=== PATIENT | female | born 1955 | race Caucasian/White ===

== ENCOUNTER 2017-04-10 09:29 | Outpatient (CLI) | payer BC ==
[2017-04-10 17:47] LABS: BASOPHILS % (AUTO) 0.8 %; EOSINOPHILS # (AUTO) 0.3 10^3/uL (0.0-0.7); EOSINOPHILS % (AUTO) 5.1 %; HCT - HEMATOCRIT 45.9 % (37.0-47.0); HGB - HEMOGLOBIN 15.3 g/dL (12.0-16.0); LYMPHOCYTES # (AUTO) 1.6 10^3/uL (1.5-3.5); LYMPHOCYTES % (AUTO) 25.9 %; MEAN CORPUSCULAR HEMOGLOBIN 29.8 pg (27.0-31.0); MEAN CORPUSCULAR HGB CONC 33.4 g/dL (32.0-36.0); MEAN CORPUSCULAR VOLUME 89.1 fL (81.0-99.0); MEAN PLATELET VOLUME 8.6 fL (7.9-10.8); MONOCYTES # (AUTO) 0.5 10^3/uL (0.0-1.0); MONOCYTES % (AUTO) 8.6 %; NEUTROPHILS # (AUTO) 3.7 10^3/uL (1.5-6.6); NEUTROPHILS % (AUTO) 59.6 %; RED BLOOD COUNT 5.15 10^6/uL (4.20-5.40); RED CELL DISTRIBUTION WIDTH 13.8 % (12.0-15.0); UNCORRECTED WHITE BLOOD COUNT 6.2 x10^3/uL; WHITE BLOOD COUNT 6.2 x10^3/uL (4.8-10.8)
[2017-04-10 18:04] LABS: ALBUMIN/GLOBULIN RATIO 1.5 (1.0-2.2); BILIRUBIN,TOTAL 0.8 mg/dL (0.2-1.0); BUN - BLOOD UREA NITROGEN 16 mg/dL (6-20); CALCIUM 9.5 mg/dL (8.5-10.3); CARBON DIOXIDE - CO2 28 mmol/L (21-32); CHLORIDE 104 mmol/L (101-111); CHOL/HDL RATIO 2.8 (<4.4); CHOLESTEROL 205 mg/dL; GFR - MDRD 56 (>89); GLUCOSE 110 mg/dL (70-100); HDL CHOLESTEROL 74 mg/dL; POTASSIUM 4.4 mmol/L (3.5-5.0); SODIUM 140 mmol/L (135-145); TOTAL PROTEIN 7.1 g/dL (6.7-8.2); TRIGLYCERIDES 22 mg/dL
[2017-04-10 18:21] LABS: FERRITIN 55.4 ng/mL (11.0-306.8)
[2017-04-10 18:32] LABS: LDL CHOLESTEROL,DIRECT 114 mg/dL
[2017-04-10 18:33] LABS: THYROID STIMULATING HORMONE 0.59 uIU/mL (0.34-5.60)
== END 2017-04-10 09:30 | disposition home or self-care (01) ==
LOC: LAB.F 09:29
PROVIDERS: ATTEND Nurse Practitioner Family
DX: E03.9 Hypothyroidism, unspecified (principal)
CPT/HCPCS: 36415; 80053; 80061; 82306; 82728; 84436; 84439; 84443; 84481; 85025; 86376; 86800

== ENCOUNTER 2017-04-25 11:07 | Outpatient (CLI) | payer BC ==
--- NOTE | 2017-04-28 14:03 | Mammography Report ---
DIGITAL SCREENING MAMMOGRAM: 04/25/2017 CLINICAL INDICATION: A 62-year-old nulliparous patient for screening. COMPARISON: 06/2015, 04/2012, 04/2010, 10/2008, 08/2007. TECHNIQUE: Routine CC and MLO projections were obtained of the breasts. FINDINGS: The breasts demonstrate heterogeneously dense fibroglandular parenchyma bilaterally. Coar se and punctate, typically benign calcifications are present. No suspicious masses, clustered microc alcifications, or regions of architectural distortion are identified. IMPRESSION: BENIGN FINDINGS. RECOMMENDATION: Routine annual screening unless otherwise clinically indicated. BIRADS CATEGORY 2 - BENIGN FINDINGS. STANDARD QUALIFYING STATEMENTS 1. This examination was reviewed with the aid of Computer-Aided Detection (CAD). 2. A negative or benign imaging report should not delay biopsy if clinically suspicious findings are present. Consider surgical consultation if warranted. More than 5% of cancers are not identified by i maging. 3. Dense breasts may obscure an underlying neoplasm. JOB #: [id number] EXT JOB #:[id number]
== END 2017-04-25 11:08 | disposition home or self-care (01) ==
LOC: DI.S 11:07
PROVIDERS: ATTEND Nurse Practitioner Family
DX: Z12.31 Encounter for screening mammogram for malignant neoplasm of breast (principal)
CPT/HCPCS: 77067

== ENCOUNTER 2017-05-16 09:15 | Outpatient (CLI) | payer BC ==
--- NOTE | 2017-05-16 15:44 | XRAY Report ---
THREE VIEW RIGHT FOOT: 05/16/2017 CLINICAL INDICATION: Pain. FINDINGS: AP, lateral, and oblique views of the right foot demonstrate mild degenerative changes. Th ere is no evidence of acute fracture or dislocation. Plantar calcaneal spurring is noted. IMPRESSION: MILD OSTEOARTHRITIS. NO EVIDENCE OF ACUTE FRACTURE. JOB #: [id number] EXT JOB #:[id number]
== END 2017-05-16 09:16 | disposition home or self-care (01) ==
LOC: DI 09:15
PROVIDERS: ATTEND Podiatrist
DX: M19.071 Primary osteoarthritis, right ankle and foot (principal)

== ENCOUNTER 2017-07-02 13:01 | Emergency (ER) | payer BC ==
[2017-07-02] MEDS ORDERED: HYDROmorphone 1 MG/ML SYRINGE IVP STA ×3 (13:37→20:02)
[2017-07-02] MEDS ORDERED: SODIUM CHLORIDE 0.9% 1,000 ML IV ONE (13:37)
[2017-07-02] MEDS ORDERED: ONDANSETRON 4 MG/2 ML VIAL IVP STA (13:37)
--- NOTE | 2017-07-02 13:43 | ED Physician Documentation ---
History of Present Illness - Stated complaint Stated Complaint: R SIDE PX - Chief complaint Chief Complaint: Abd Pain - History obtained from History obtained from: Patient - Additonal information Additional information: Patient is a 62-year-old female for the most part is very healthy. 2 weeks ago she had a ruptured diverticuli and subsequently has had a colectomy and now has a colostomy. Patient is here with a complaint of right upper quadrant pain she has had a little pain ever since his surgery and slowly getting getting worse over the past 2 weeks. Now the pain is increased today. She felt diaphoretic. The pain when she localizes it is over the right costal margin and when she touches it she winces in pain. Appears to be well localized area in the right costal margin. She has not had any coughing there is not been any fever chills she has not had nausea or vomiting. She has had mild dysuria. She says she sometimes has increased pain when she tries to take a deep breath or when she tries to get out of bed. She denies any history of any cardiac problems and does not have any history of venous thromboembolism. She denies any unilateral leg pain or swelling. Review of systems: For pertinent positive and negatives in the review of systems please see the history of present illness, otherwise all other systems have been reviewed and are negative. Dragon disclaimer: Parts of this medical record were created using voice recognition technology. Because of the inherent limitations of this system, occasional same sounding word substitutions do occur and persist despite proofreading. Please read the document for context. Review of Systems Constitutional: denies: Fever, Chills, Myalgias GI: reports: Abdominal Pain. denies: Nausea, Vomiting : reports: Dysuria. denies: Frequency, Hesitancy PD PAST MEDICAL HISTORY - Past Medical History Cardiovascular: None Respiratory: None Neuro: None Endocrine/Autoimmune: HyPOthyroidism GI: Other FLAVORER: None : None HEENT: None Psych: None Musculoskeletal: None Derm: None - Past Surgical History Past Surgical History: Yes General: Bowel surgery Ortho: ACL reconstruction, Other Derm: Skin cancer surgery - Present Medications Home Medications: Ambulatory Orders Medication Instructions Recorded Confirmed Thyroid,Pork [[place] Thyroid] 90 mg PO DAILY 06/18/17 07/02/17 metFORMIN [Glucophage] 500 mg PO DAILY 06/18/17 07/02/17 HYDROcodone/ACET 10/325 [[place] 10 1 tab PO Q4HR PRN #30 tablet 06/25/17 07/02/17 mg/325 mg] levoFLOXacin [Levaquin] 500 mg PO DAILY #7 tablet 06/25/17 07/02/17 metroNIDAZOLE [Flagyl] 250 mg PO Q6HR #28 tablet 06/25/17 07/02/17 - Allergies Allergies/Adverse Reactions: Allergies Allergy/AdvReac Type Severity Reaction Status Date / Time gluten Allergy Nausea Verified 07/02/17 13:09 milk AdvReac Cramps Verified 07/02/17 13:09 - Social History Does the pt smoke?: No Smoking Status: Former smoker Does the pt drink ETOH?: No Does the pt have substance abuse?: No - Immunizations Immunizations are current?: Yes - POLST Patient has POLST: No PD ED PE NORMAL - Vitals Vital signs reviewed: Yes - General General: Alert and oriented X 3, No acute distress, Well developed/nourished, Other (Well-appearing female does not look toxic or ill. She is noted to be mildly diaphoretic on palpation. She does appear to be uncomfortable.) - HEENT HEENT: Atraumatic, PERRL - Cardiac Cardiac: RRR, No murmur, No gallop, No rub, Other (Focal area of tenderness between the ribs and right costal margin below the right breast) - Respiratory Respiratory: No respiratory distress, Clear bilaterally - Abdomen Abdomen: Normal bowel sounds, Soft, Non tender, Non distended, Other (Fairly benign abdomen possible mild tenderness in right upper quadrant however the majority of the tenderness is over the costal margin, bowel tones normal active. Colostomy site looks normal.) - Back Back: No CVA TTP, No spinal TTP - Derm Derm: Normal color, Warm and dry, No rash, Other - Extremities Extremities: No deformity, No tenderness to palpate, Normal ROM s pain, No edema - Psych Psych: Normal mood, Normal affect Results - Vitals Vitals: Vital Signs - 24 hr 07/02/17 07/02/17 07/02/17 13:05 14:30 15:41 Temperature 36.3 C L Heart Rate 70 68 70 Respiratory 16 16 16 Rate Blood Pressure 130/82 H 124/73 121/77 O2 Saturation 98 94 94 07/02/17 07/02/17 07/02/17 18:41 19:39 21:17 Temperature Heart Rate 76 82 80 Respiratory 20 16 16 Rate Blood Pressure 153/93 H 150/82 H 150/78 H O2 Saturation 97 100 96 Oxygen O2 Source Room air - Labs Labs: Laboratory Tests 07/02/17 07/02/17 07/02/17 13:53 13:53 13:53 WBC 8.8 RBC 4.19 L Hgb 12.4 Hct 36.7 L MCV 87.6 MCH 29.5 MCHC 33.7 RDW 13.6 Plt Count 625 H MPV 6.8 L Neut # 6.1 Lymph # 1.5 [place] # 0.9 Eos # 0.2 Baso # 0.0 Absolute Nucleated RBC 0.00 Nucleated RBCs 0.0 PT 13.5 H INR 1.2 D-Dimer Sodium 136 Potassium 4.0 Chloride 102 Carbon Dioxide 25 Anion Gap 9.0 BUN 10 Creatinine 0.7 Estimated GFR (MDRD) 85 L Glucose 92 Calcium 8.5 Total Bilirubin 0.5 AST 19 ALT 18 Alkaline Phosphatase 64 Troponin I B-Natriuretic Peptide Total Protein 6.5 L Albumin 3.0 L Globulin 3.5 Albumin/Globulin Ratio 0.9 L Lipase 66 H Urine Color Urine Clarity Urine pH Ur Specific Wilson Urine Protein Urine Glucose (UA) Urine Ketones Urine Occult Blood Urine Nitrite Urine Bilirubin Urine Urobilinogen Ur Leukocyte Esterase Ur Microscopic Review Urine Culture Comments 07/02/17 07/02/17 07/02/17 13:53 13:53 13:53 WBC RBC Hgb Hct MCV MCH MCHC RDW Plt Count MPV Neut # Lymph # [place] # Eos # Baso # Absolute Nucleated RBC Nucleated RBCs PT INR D-Dimer > 1050.0 H Sodium Potassium Chloride Carbon Dioxide Anion Gap BUN Creatinine Estimated GFR (MDRD) Glucose Calcium Total Bilirubin AST ALT Alkaline Phosphatase Troponin I < 0.04 B-Natriuretic Peptide 378 H Total Protein Albumin Globulin Albumin/Globulin Ratio Lipase Urine Color Urine Clarity Urine pH Ur Specific Wilson Urine Protein Urine Glucose (UA) Urine Ketones Urine Occult Blood Urine Nitrite Urine Bilirubin Urine Urobilinogen Ur Leukocyte Esterase Ur Microscopic Review Urine Culture Comments 07/02/17 18:30 WBC RBC Hgb Hct MCV MCH MCHC RDW Plt Count MPV Neut # Lymph # [place] # Eos # Baso # Absolute Nucleated RBC Nucleated RBCs PT INR D-Dimer Sodium Potassium Chloride Carbon Dioxide Anion Gap BUN Creatinine Estimated GFR (MDRD) Glucose Calcium Total Bilirubin AST ALT Alkaline Phosphatase Troponin I B-Natriuretic Peptide Total Protein Albumin Globulin Albumin/Globulin Ratio Lipase Urine Color YELLOW Urine Clarity CLEAR Urine pH 7.0 Ur Specific Wilson 1.010 Urine Protein NEGATIVE Urine Glucose (UA) NEGATIVE Urine Ketones NEGATIVE Urine Occult Blood NEGATIVE Urine Nitrite NEGATIVE Urine Bilirubin NEGATIVE Urine Urobilinogen 0.2 (NORMAL) Ur Leukocyte Esterase NEGATIVE Ur Microscopic Review NOT INDICATED Urine Culture Comments NOT INDICATED PD MEDICAL DECISION MAKING - ED course Complexity details: reviewed old records, reviewed results, re-evaluated patient ED course: Patient is a 62-year-old female who is relatively healthy. She did have peritonitis from ruptured diverticuli and status post hemicolectomy and colostomy. She is here with a complaint of exquisite right costal margin pain. She identifies a well localizable spot in the right anterior costal margin that is exquisitely tender to touch. Because the patient was recently hospitalized she also complained of dyspnea workup ensued which included a d- dimer. The d-dimer was not negative so a CT angiogram of the chest was done and extended through the abdomen and pelvis given her proximity of recent surgery and complaints. The CT scan shows very small pleural effusions otherwise no evidence of pulmonary embolism. The abdominal portion shows changes are probably more consistent with a normal postoperative course. Patient's blood work EKG and urine are also checked and really unremarkable. 10 cc of bupivacaine and 40 mg of Kenalog were injected into the patient's costal margin. I was able to identify a point of maximal intensity of pain and carefully injected the anesthetic and steroid into the intercostal muscle. Remarkably the patient was nearly pain-free after the injection suggesting intercostal myalgia and perhaps cutaneous nerve entrapment syndrome. I suspect a small pleural effusions are more customer sales representative of the postoperative. Since the patient has not been getting up and moving around quite a bit. There is no evidence of hypervolemia and I doubt this is customer sales representative of pulmonary edema or volume overload. The patient will be discharged home at this time she should start to feel better once a Kenalog starts to work. Disposition: To home Clinical impression: 1. Precordial pain 2. Point tenderness costal margin much better after Kenalog and bupivacaine injection suggestive of intercostal myalgia or cutaneous nerve entrapment syndrome 3. Minimal bilateral pleural effusions probably related to normal postoperative. Doubt CHF Departure - Departure Disposition: Home, Self Care Clinical Impression: Intercostal myalgia Instructions: ED Strain Chest Wall Follow-Up: your,physician [Other] Comments: You have a very tender area in the musculature between your ribs consistent with a diagnosis of intercostal myalgia. I did be careful exerting yourself in regards to using the upper extremities or lifting herself out of bed. This is a painful but not a serious condition that should go away with time. you might add anti-inflammatories such as Motrin or naproxen to your current medical therapy Discharge Date/Time: 07/02/17 21:43
[2017-07-02] MEDS ORDERED: HYDROmorphone 1 MG/ML SYRINGE ONE ×3 (13:44→20:11)
[2017-07-02] MEDS ORDERED: ONDANSETRON 4 MG/2 ML VIAL ONE (13:44)
[2017-07-02 13:58] LABS: BASOPHILS % (AUTO) 0.5 %; EOSINOPHILS # (AUTO) 0.2 10^3/uL (0.0-0.7); EOSINOPHILS % (AUTO) 1.9 %; HCT - HEMATOCRIT 36.7 % (37.0-47.0); HGB - HEMOGLOBIN 12.4 g/dL (12.0-16.0); LYMPHOCYTES # (AUTO) 1.5 10^3/uL (1.5-3.5); LYMPHOCYTES % (AUTO) 16.9 %; MEAN CORPUSCULAR HEMOGLOBIN 29.5 pg (27.0-31.0); MEAN CORPUSCULAR HGB CONC 33.7 g/dL (32.0-36.0); MEAN CORPUSCULAR VOLUME 87.6 fL (81.0-99.0); MEAN PLATELET VOLUME 6.8 fL (7.9-10.8); MONOCYTES # (AUTO) 0.9 10^3/uL (0.0-1.0); MONOCYTES % (AUTO) 10.6 %; NEUTROPHILS # (AUTO) 6.1 10^3/uL (1.5-6.6); NEUTROPHILS % (AUTO) 70.1 %; RED BLOOD COUNT 4.19 10^6/uL (4.20-5.40); RED CELL DISTRIBUTION WIDTH 13.6 % (12.0-15.0); UNCORRECTED WHITE BLOOD COUNT 8.8 x10^3/uL; WHITE BLOOD COUNT 8.8 x10^3/uL (4.8-10.8)
[2017-07-02 14:07] LABS: INR 1.2 (0.8-1.2); PT - PROTHROMBIN TIME 13.5 secs (9.9-12.6)
--- NOTE | 2017-07-02 14:09 | XRAY Preliminary Report ---
Exam: XR Chest 1 View IMPRESSION: 1. Lung volumes are somewhat low. Heart size within normal limits. 2. Left base opacity may represent pleural effusion and/or airspace disease. 3. Right costophrenic sulcus blunting may represent small effusion. 4. No evidence of pneumothorax. [facility] SITE ID: [id number]
[2017-07-02 14:11] LABS: ALBUMIN/GLOBULIN RATIO 0.9 (1.0-2.2); BILIRUBIN,TOTAL 0.5 mg/dL (0.2-1.0); CALCIUM 8.5 mg/dL (8.5-10.3); CREATININE 0.7 mg/dL (0.4-1.0); TOTAL PROTEIN 6.5 g/dL (6.7-8.2)
--- NOTE | 2017-07-02 14:11 | XRAY Report ---
EXAM: CHEST RADIOGRAPHY EXAM DATE: 07/02/2017 01:59 PM. CLINICAL HISTORY: Right sided chest pain. COMPARISON: 05/29/2008. TECHNIQUE: 1 view. FINDINGS: Lungs/Pleura: Lung volumes are somewhat low. There is opacity within the left lung base. There is rig ht costophrenic sulcus blunting. No evidence of pneumothorax. Mediastinum: Within exam limitations, cardiomediastinal contour is normal. Other: None. IMPRESSION: 1. Lung volumes are somewhat low. Heart size within normal limits. 2. Left base opacity may represent pleural effusion and/or airspace disease. 3. Right costophrenic sulcus blunting may represent small effusion. 4. No evidence of pneumothorax. [facility] Referring Provider Line: [phone] SITE ID: [id number]
--- NOTE | 2017-07-02 17:37 | CT Report ---
EXAM: CT ANGIOGRAM CHEST EXAM DATE: 07/02/2017 04:48 PM. CLINICAL HISTORY: Chest pain, dyspnea. COMPARISON: None. TECHNIQUE: Routine helical imaging was performed through the chest in the pulmonary arterial phase. I V Contrast: 100 cc Isovue-300. Reconstructions: Coronal 3-D MIP reconstructions.Sagittal and coronal. In accordance with CT protocol optimization, one or more of the following dose reduction techniques w ere utilized for this exam: automated exposure control, adjustment of mA and/or KV based on patient s ize, or use of iterative reconstructive technique. FINDINGS: Pulmonary Arteries: Diagnostic quality: Adequate through the proximal to mid segmental arteries. Respiratory motion artif act and atelectasis limited assessment of distal vessels. No evidence for acute or chronic pulmonary emboli. No evidence of right heart strain. Lungs/Pleura: There is a moderate-sized left pleural effusion. Small right pleural effusion. There is right middle lobe collapse. There is bibasilar dependent airspace disease which may represent atelec tasis and/or infiltrates. There is no evidence of pneumothorax. Mediastinum: There is cardiomegaly. No enlarged axillary, supraclavicular, mediastinal, or hilar lymp h nodes. Thoracic Aorta: Unremarkable. Visualize abdomen: Findings are detailed separately. Other: None. IMPRESSION: 1. No evidence of acute pulmonary embolism through the proximal to mid segmental branch level. No [place] dence of large central embolus or right heart strain. 2. There are bilateral pleural effusions. 3. There is right middle lobe collapse. 4. There is bibasilar dependent airspace disease which may represent atelectasis and/or infiltrates. 5. There is cardiomegaly. 6. No evidence of thoracic aortic dissection or aneurysm. 7. Findings within the abdomen and pelvis are detailed separately. [facility] Referring Provider Line: [phone] SITE ID: [id number]
--- NOTE | 2017-07-02 17:45 | CT Report ---
EXAM: CT ABDOMEN AND PELVIS EXAM DATE: 07/02/2017 04:48 PM. CLINICAL HISTORY: Chest pain, abdominal pain COMPARISONS: 06/18/2017. TECHNIQUE: Routine helical CT imaging was performed through the abdomen and pelvis. IV contrast: 100 cc Isovue-300. Enteric contrast: No. Reconstructions: Coronal and sagittal. In accordance with CT protocol optimization, one or more of the following dose reduction techniques w ere utilized for this exam: automated exposure control, adjustment of mA and/or KV based on patient s ize, or use of iterative reconstructive technique. FINDINGS: Lung Bases: Findings are detailed separately. Liver: Normal. No masses. Gallbladder/Bile Ducts: Unremarkable. Spleen: Normal. Pancreas: Normal. Adrenal Glands: Normal. Kidneys: Normal. No masses or hydronephrosis. Peritoneal Cavity/Bowel: There is a small hiatal hernia. No clearly dilated or thick-walled bowel is seen. There is a left lower quadrant ostomy. There is some mild mesenteric edema adjacent to bowel lo ops within the lower left abdomen and pelvis. Trace free fluid within the pelvis. No intraperitoneal free air. The appendix is well visualized and normal. Pelvic Organs: There are rectosigmoid surgical sutures. Removal of fatty density lesion within the ri ght adnexa. The urinary bladder is unremarkable. Vasculature: No aneurysms or other significant abnormality. Bones: No significant abnormality. Other: None. IMPRESSION: 1. Findings within the chest are detailed separately. 2. Status post distal colectomy with left lower quadrant ostomy. No evidence of intra-abdominal fluid collection. 3. There is some mild mesenteric edema adjacent to loops of bowel within the left lower quadrant. Thi s could represent mild enteritis. No dilated or thick-walled bowel is seen. 4. No acute solid abdominal organ abnormalities are seen. 5. There is a small hiatal hernia. 6. Interval removal of right adnexal fat density lesion. No clearly acute pelvic organ abnormalities are seen. [facility] Referring Provider Line: [phone] SITE ID: [id number]
[2017-07-02 18:42] LABS: BILIRUBIN,URINE NEGATIVE (NEGATIVE)
[2017-07-02 18:46] LABS: UA CHARGE (STRIP ONLY) YES; UR CULTURE IF IND NOT INDICATED
[2017-07-02] MEDS ORDERED: KETOROLAC 60 MG/2 ML VIAL IVP STA (20:02)
[2017-07-02] MEDS ORDERED: TRIAMCINOLONE 40 MG/ML VIAL IM STA (20:03)
[2017-07-02] MEDS ORDERED: BUPIVACAINE 0.5% PF 30 ML VIAL SUBQ STA (20:04)
[2017-07-02] MEDS ORDERED: TRIAMCINOLONE 40 MG/ML VIAL ONE (20:11)
[2017-07-02] MEDS ORDERED: KETOROLAC 30 MG/ML VIAL ONE (20:11)
[2017-07-02] MEDS ORDERED: BUPIVACAINE 0.5% PF 30 ML VIAL ONE (20:12)
[2017-07-02 21:18] VITALS: BP 150/78
== END 2017-07-02 21:43 | disposition home or self-care (01) ==
LOC: ED 13:01
DX: M79.1 Myalgia (principal); R07.2 Precordial pain; Z93.3 Colostomy status; E03.9 Hypothyroidism, unspecified; Z87.891 Personal history of nicotine dependence
CPT/HCPCS: 36415; 71010; 71275; 74177; 80053; 81003; 83690; 83880; 84484; 85025; 85379; 85610; 93005; 96372; 96374; 96375; 96376; 99283; 99284; J1170; 81001; 87086

== ENCOUNTER 2017-10-16 10:21 | Day surgery (SDC) | payer BC ==
[2017-10-16] MEDS ORDERED: LACTATED RINGERS 1,000 ML IV ONE (11:03)
[2017-10-16] MEDS ORDERED: ONDANSETRON 4 MG/2 ML VIAL IVP ONE (11:29)
[2017-10-16] MEDS ORDERED: MIDAZOLAM 2 MG/2 ML VIAL IVP ONE (11:29)
[2017-10-16] MEDS ORDERED: fentaNYL 100 MCG/2 ML VIAL IVP ONE (11:29)
[2017-10-16 14:18] VITALS: BP 126/74
== END 2017-10-16 10:22 | disposition home or self-care (01) ==
LOC: SDS 10:21
PROVIDERS: ATTEND Surgery
PROC: 0DBN8ZX Excision of Sigmoid Colon, Via Natural or Artificial Opening Endoscopic, Diagnostic (ICD-10-PCS; 2017-10-16)
PROC: 0DBK8ZX Excision of Ascending Colon, Via Natural or Artificial Opening Endoscopic, Diagnostic (ICD-10-PCS; principal; 2017-10-16 11:15)
DX: Z12.11 Encounter for screening for malignant neoplasm of colon (principal); D12.2 Benign neoplasm of ascending colon; D12.5 Benign neoplasm of sigmoid colon; K57.30 Diverticulosis of large intestine without perforation or abscess without bleeding; K64.8 Other hemorrhoids; Z87.891 Personal history of nicotine dependence; Z93.3 Colostomy status
CPT/HCPCS: 44389; 45385; J7120

== ENCOUNTER 2018-01-21 10:00 | Outpatient (CLI) | payer BC ==
[2018-01-21 17:53] LABS: T4 (THYROXINE) 7.72 ug/dL (6.09-12.23)
[2018-01-21 17:56] LABS: THYROID STIMULATING HORMONE 0.53 uIU/mL (0.34-5.60)
[2018-01-21 17:58] LABS: FREE T4 (FREE THYROXINE) 0.88 ng/dL (0.58-1.64)
== END 2018-01-21 10:01 | disposition home or self-care (01) ==
LOC: LAB.F 10:00
PROVIDERS: ATTEND Nurse Practitioner Family
DX: E03.2 Hypothyroidism due to medicaments and other exogenous substances (principal); E55.9 Vitamin D deficiency, unspecified; M25.50 Pain in unspecified joint
CPT/HCPCS: 36415; 82306; 84436; 84439; 84443; 84481; 85651

== ENCOUNTER 2018-06-30 20:16 | Outpatient (CLI) | payer BC ==
--- NOTE | 2018-07-01 01:47 | Ultrasound Report ---
Reason: SPRAIN OF MEDIAL COLLATERAL LIGAMENT OF LT KNEE Procedure Date: 06/30/2018 Accession Number: [id number] / [id number] Procedure: US - Duplex Ext Veins Left CPT Code: FULL RESULT: EXAM: LEFT LOWER EXTREMITY VENOUS ULTRASOUND EXAM DATE: 06/30/2018 08:25 PM. CLINICAL HISTORY: SPRAIN OF MEDIAL COLLATERAL LIGAMENT OF LT KNEE. COMPARISON: None. TECHNIQUE: Real-time sonographic vascular imaging was performed by the secure software assessor through the lower extremity utilizing both color-flow and Doppler spectral analysis. Multiple pharmaceutical representative static images were saved for review. FINDINGS: Common Femoral Vein (CFV): Normal. CFV-GSV Junction: Normal. Profunda Femoral Vein (PFV): Normal. Femoral Vein (FV) Prox: Normal. Femoral Vein (FV) Mid: Normal. Femoral Vein (FV) Dist: Normal. Popliteal Vein: Normal. Posterior Tibial Veins: Normal. Peroneal Veins: Normal. Contralateral Side CFV: Normal. Other: There is a 2.0 x 0.4 0.8 cm Tanner cyst. IMPRESSION: No evidence for deep venous thrombosis. Tanner's cyst. [facility]
== END 2018-06-30 20:17 | disposition home or self-care (01) ==
LOC: DI 20:16
PROVIDERS: ATTEND Orthopaedic Surgery Sports Medicine
DX: M79.89 Other specified soft tissue disorders (principal); S83.412D Sprain of medial collateral ligament of left knee, subsequent encounter; M71.22 Synovial cyst of popliteal space [Baker], left knee

== ENCOUNTER 2018-12-29 14:40 | Outpatient (CLI) | payer BC | END 2018-12-29 14:41 | disposition home or self-care (01) | LOC: SC 14:40 | PROVIDERS: ATTEND Internal Medicine Pulmonary Disease | DX: G47.10 Hypersomnia, unspecified (principal); R06.81 Apnea, not elsewhere classified; R06.83 Snoring; G47.8 Other sleep disorders; R41.89 Other symptoms and signs involving cognitive functions and awareness | CPT/HCPCS: 99203; 99212 ==

== ENCOUNTER 2019-02-02 19:30 | Outpatient (CLI) | payer BC | END 2019-02-02 23:59 | disposition home or self-care (01) | LOC: SC 19:30 | PROVIDERS: ATTEND Internal Medicine Pulmonary Disease | DX: G47.33 Obstructive sleep apnea (adult) (pediatric) (principal) | CPT/HCPCS: 95806 ==

== ENCOUNTER 2019-04-01 10:06 | Outpatient (CLI) | payer BC ==
--- NOTE | 2019-04-01 14:31 | XRAY Report ---
Reason: PERSONAL HISTORY OF NICOTINE DEPENDENCE Procedure Date: 04/01/2019 Accession Number: [id number] / [id number] Procedure: XR - Chest 2 View X-Ray CPT Code: 99574 FULL RESULT: EXAM: CHEST RADIOGRAPHY EXAM DATE: 04/01/2019 11:31 AM. CLINICAL HISTORY: Personal history of nicotine dependence. COMPARISON: CHEST 2 VIEW PA/LAT 10/25/2017 3:16 PM. TECHNIQUE: 2 views. FINDINGS: Lungs/Pleura: No focal opacities evident. No pleural effusion. No pneumothorax. Normal volumes. Mediastinum: Heart and mediastinal contours are unremarkable. Other: None. IMPRESSION: No airspace disease is detected. [facility]
--- NOTE | 2019-04-01 17:43 | MRI Report ---
Reason: TEAR OF MEDIAL MENISCUA OF RIGHT KNEE Procedure Date: 04/01/2019 Accession Number: [id number] / [id number] Procedure: MRI - Knee RT W/O CPT Code: FULL RESULT: EXAM: RIGHT KNEE MRI WITHOUT CONTRAST. EXAM DATE: 04/01/2019 10:21 AM. CLINICAL HISTORY: Tear of medial meniscus of right knee. COMPARISON: KNEE 4 VIEW RT 02/17/2015 3:12 PM. TECHNIQUE: Multiplanar, multisequence T1-weighted and fluid-sensitive sequences of the knee without contrast. Other: None. FINDINGS: Bones: Moderate degenerative joint disease with osteophytes in all 3 compartments. Previous ACL repair. Bone tunnels and hardware in the expected location with mild susceptibility artifact as expected. Moderate marrow edema in the medial femoral condyle. No fracture margin seen. Likely degenerative. Articular Cartilage: 1 x 2 cm grade III-IV chondromalacia defect in the medial femoral condyle with 0.5 cm cartilage flap fragment. Grade III and IV chondromalacia patella. Medial Meniscus: 1 cm radial tear posterior horn, nondisplaced. Lateral Meniscus: The lateral meniscus is intact. Cruciate Ligaments: ACL graft is somewhat indistinct but appears intact. PCL appears normal. Collateral Ligaments: Mild edema proximal medial collateral ligament. Lateral collateral normal. Tendons: The quadriceps, patellar, semimembranosus, and popliteus tendons are unremarkable. Musculature: No edema or fatty atrophy. Other: Small effusion. 6 cm popliteal fossa cyst. No loose bodies. The medial and lateral retinacula are intact. Mild soft tissue edema. IMPRESSION: 1. Previous ACL repair appears intact. 2. Moderate 3 compartment degenerative joint disease, most severe in the medial and patellofemoral compartments. 3. 1 x 2 cm grade III/IV chondromalacia defect medial femoral condyle with associated marrow edema in the medial femoral condyle. 4. Radial tear posterior horn medial meniscus. 5. Grade 1 sprain medial collateral ligament. [facility]
== END 2019-04-01 10:07 | disposition home or self-care (01) ==
LOC: DI 10:06
PROVIDERS: ATTEND Orthopaedic Surgery
DX: S83.241D Other tear of medial meniscus, current injury, right knee, subsequent encounter (principal); M17.11 Unilateral primary osteoarthritis, right knee; M94.261 Chondromalacia, right knee; S83.411A Sprain of medial collateral ligament of right knee, initial encounter; R05 Cough; Z87.891 Personal history of nicotine dependence
CPT/HCPCS: 71046

== ENCOUNTER 2019-04-22 10:08 | Outpatient (CLI) | payer BC ==
--- NOTE | 2019-04-22 17:33 | MRI Report ---
Reason: PRIMARY OSTEOARTHRITIS OF LEFT KNEE Procedure Date: 04/22/2019 Accession Number: [id number] / [id number] Procedure: MRI - Knee LT W/O CPT Code: FULL RESULT: EXAM: LEFT KNEE MRI WITHOUT CONTRAST EXAM DATE: 04/22/2019 10:46 AM. CLINICAL HISTORY: Left knee osteoarthritis. COMPARISON: None. TECHNIQUE: Multiplanar, multisequence T1-weighted and fluid-sensitive sequences of the knee without contrast. Other: None. FINDINGS: Bones: There is subchondral edema in the medial corner of the medial tibial condyle and in the lateral half of the femoral trochlea. There is tricompartmental osteophyte formation. Articular Cartilage: There is severe erosion of the hyaline cartilage of the medial compartment. There is mild erosion of the hyaline cartilage of the lateral compartment. There is mild to moderate erosion of the patellofemoral cartilage. Medial Meniscus: The body of the medial meniscus is extruded, with fraying of the free margin. Lateral Meniscus: Lateral meniscus is intact. Cruciate Ligaments: The anterior and posterior cruciate ligaments are intact. Collateral Ligaments: The medial collateral and lateral collateral ligamentous structures are intact. Tendons: The quadriceps, patellar, semimembranosus, and popliteus tendons are unremarkable. Musculature: No edema or fatty atrophy. Other: There is a moderate-sized joint effusion with a popliteal cyst. No loose bodies. The medial and lateral retinacula are intact. The subcutaneous tissues and fat pads are unremarkable. IMPRESSION: 1. Tricompartmental osteoarthritis worst in the medial compartment. 2. Moderate-sized joint effusion with a popliteal cyst. 3. Extrusion of the medial meniscus with fraying of the free margin. [facility]
== END 2019-04-22 10:09 | disposition home or self-care (01) ==
LOC: DI 10:08
PROVIDERS: ATTEND Orthopaedic Surgery
DX: M17.12 Unilateral primary osteoarthritis, left knee (principal); M71.22 Synovial cyst of popliteal space [Baker], left knee; M25.462 Effusion, left knee

== ENCOUNTER 2019-04-26 14:28 | Outpatient (CLI) | payer BC | END 2019-04-26 14:29 | disposition home or self-care (01) | LOC: SC 14:28 | PROVIDERS: ATTEND Internal Medicine Pulmonary Disease | DX: G47.33 Obstructive sleep apnea (adult) (pediatric) (principal) | CPT/HCPCS: 99212; 99213 ==

== ENCOUNTER 2019-06-01 15:49 | Outpatient (CLI) | payer BC ==
--- NOTE | 2019-06-03 14:00 | XRAY Report ---
Reason: PAIN EDEMA CALCANEUS-ACHILLES TENDON LT Procedure Date: 06/01/2019 Accession Number: [id number] / [id number] Procedure: XR - Calcaneus LT CPT Code: FULL RESULT: EXAM: LEFT ANKLE RADIOGRAPHY EXAM DATE: 06/01/2019 04:06 PM. CLINICAL HISTORY: Pain and edema centered on the calcaneus and the Achilles tendon. COMPARISON: None. TECHNIQUE: Lateral and axial views. FINDINGS: Bones: No fracture or other acute abnormality. 9 mm posterior plantar calcaneal spur. Joints: No subluxation. Soft Tissues: Linear calcification in the plantar fascia, 15 mm anterior to the tip of the calcaneal spur. Thickening of the distal Achilles tendon above the calcaneus, 15 mm AP dimension, with faint linear calcifications. IMPRESSION: No acute abnormality. 9 mm posterior plantar calcaneal spur. Horizontal linear calcifications in the plantar fascia, probably from prior inflammation or injury. Tendinosis of the distal Achilles tendon. [facility]
== END 2019-06-01 15:50 | disposition home or self-care (01) ==
LOC: DI 15:49
PROVIDERS: ATTEND Podiatrist
DX: M67.874 Other specified disorders of tendon, left ankle and foot (principal); M77.32 Calcaneal spur, left foot

== ENCOUNTER 2019-06-05 10:04 | Outpatient (CLI) | payer BC ==
--- NOTE | 2019-06-06 19:54 | MRI Report ---
Reason: 5 CM FIBROUS SWELLING PAIN ACHILLES TENDON L Procedure Date: 06/05/2019 Accession Number: [id number] / [id number] Procedure: MRI - Lower Leg (Tib-Fib) LT W/O CPT Code: 78281 FULL RESULT: EXAM: LEFT ANKLE/HINDFOOT MRI WITHOUT CONTRAST. EXAM DATE:06/05/2019 11:59 AM. CLINICAL HISTORY: 5 cm fibrous swelling pain Achilles tendon left COMPARISON: None. TECHNIQUE: Multiplanar, multisequence T1-weighted and fluid-sensitive sequences of the ankle/hindfoot without contrast. Other: None. FINDINGS: Evaluation mildly limited by patient motion and artifact despite repeat sequences. Bones: No fracture or bone lesion. Mild to moderate degenerative cysts and bone marrow edema at the tarsometatarsal joints, most prominent at the second. Articular Cartilage: No focal defect at the talar dome. Moderate degenerative changes at the tarsometatarsal joints. Ligaments: Mild thickening anterior and posterior tibiofibular, talofibular, and calcaneofibular ligaments, consistent with old sprains. Subtle regularity at the deep fibers deltoid ligament. Spring ligament mildly attenuated although intact. Anterior Tendons: The tibialis anterior, extensor hallucis longus, and extensor digitorum longus tendons are unremarkable. Medial Tendons: The tibialis posterior, flexor digitorum longus, and flexor hallucis longus tendons are unremarkable. Lateral Tendons: Mild tendinopathy peroneus longus and brevis tendons. Achilles Tendon: Severe tendinopathy, most prominent 2 cm from the insertion where there is a focal deep tear extending obliquely through the tendon substance. Tear extends from the posterior lateral surface, involves majority of the transverse width and extends 2.5 cm craniocaudal. Musculature: No edema or fatty atrophy. Other: Small tibiotalar and subtalar joint effusions. 0.5 x 0.6 x 1.5 cm ganglion at the dorsal and lateral aspect talonavicular joint. Minimal edema in the sinus tarsi. Tarsal tunnel unremarkable. Mild thickening at the central band plantar fascia. Mild to moderate subcutaneous edema over the posterior aspect of the hindfoot and extending over the dorsal and lateral aspect midfoot and metatarsals. IMPRESSION: 1. Severe Achilles tendinopathy with focal deep intrasubstance tear 2 cm from the insertion. This extends to the surface of the tendon at the posterior lateral margin. 2. Mild peroneus longus and brevis tendinopathy. 3. Sequelae of mild sprains medial and lateral ligamentous structures. 4. Small tibiotalar and subtalar joint effusions. 5. Moderate degenerative changes at the tarsometatarsal joints. RADIA
== END 2019-06-05 10:05 | disposition home or self-care (01) ==
LOC: DI 10:04
PROVIDERS: ATTEND Podiatrist
DX: S86.012A Strain of left Achilles tendon, initial encounter (principal); M19.072 Primary osteoarthritis, left ankle and foot; M25.472 Effusion, left ankle; M67.972 Unspecified disorder of synovium and tendon, left ankle and foot

== ENCOUNTER 2019-06-07 12:17 | Outpatient (CLI) | payer BC ==
[2019-06-07 16:59] LABS: BILIRUBIN,URINE NEGATIVE (NEGATIVE); GLUCOSE, URINE (UA) NEGATIVE (NEGATIVE); KETONES,URINE (UA) NEGATIVE (NEGATIVE); LEUKOCYTE ESTERASE, URINE NEGATIVE (NEGATIVE); NITRITE,URINE NEGATIVE (NEGATIVE); OCCULT BLOOD,URINE NEGATIVE (NEGATIVE); PROTEIN,URINE NEGATIVE (NEGATIVE); UROBILINOGEN,URINE 0.2 (NORMAL) E.U./dL (NORMAL)
[2019-06-07 17:02] LABS: CLARITY,URINE CLEAR (CLEAR)
[2019-06-07 17:09] LABS: BACTERIA,URINE Rare /HPF (None Seen); RBC,URINE 0-5 /HPF (0-5); SQUAMOUS EPITHELIAL CELL,UR FEW Squamous (<= Few)
[2019-06-07 17:57] LABS: T4 (THYROXINE) 5.24 ug/dL (6.09-12.23)
[2019-06-07 17:59] LABS: THYROID STIMULATING HORMONE 0.38 uIU/mL (0.34-5.60)
[2019-06-07 18:03] LABS: FREE T4 (FREE THYROXINE) 0.64 ng/dL (0.58-1.64)
== END 2019-06-07 12:18 | disposition home or self-care (01) ==
LOC: LAB.S 12:17
PROVIDERS: ATTEND Nurse Practitioner Family
DX: R30.0 Dysuria (principal); E03.2 Hypothyroidism due to medicaments and other exogenous substances
CPT/HCPCS: 36415; 81001; 84436; 84439; 84443; 84481; 87086

== ENCOUNTER 2019-06-15 14:55 | Outpatient (CLI) | payer BC ==
--- NOTE | 2019-06-16 16:36 | MRI Report ---
Reason: R ACHILLES TENDON PAIN SWELLING, HX OF LEVOFLOXA Procedure Date: 06/15/2019 Accession Number: [id number] / [id number] Procedure: MRI - Lower Leg (Tib-Fib) RT W/O CPT Code: FULL RESULT: EXAM: RIGHT CALF/TIBIA MRI WITHOUT CONTRAST EXAM DATE: 06/15/2019 05:46 PM. CLINICAL HISTORY: Right Achilles tendon pain and swelling. COMPARISON: None. TECHNIQUE: Multiplanar, multisequence T1-weighted and fluid-sensitive sequences of the distal calf/tibia without contrast. Other: None. FINDINGS: Bones: No fractures. Mild periarticular marrow edema seen within the talar dome. Joint Spaces minimal tibiofemoral osteophytes are present. Visualized portions of the ankle and knee joints are unremarkable. The articular cartilage of the tibiotalar joint is moderately thinned. Tendons: The plantaris tendon is unremarkable. The Achilles tendon is mildly thickened approximately 4 cm from the distal insertion. Musculature: Mild muscle edema of the distal gastrocnemius. There is a mild amount of fluid in the medial crural fascia. Other: Mild subcutaneous edema surrounds the distal calf. IMPRESSION: 1. Mild to moderate Achilles tendinosis. RADIA
== END 2019-06-15 14:56 | disposition home or self-care (01) ==
LOC: DI 14:55
PROVIDERS: ATTEND Podiatrist
DX: M67.972 Unspecified disorder of synovium and tendon, left ankle and foot (principal)

== ENCOUNTER 2019-07-13 13:04 | Outpatient (CLI) | payer BC ==
--- NOTE | 2019-07-14 15:31 | XRAY Report ---
Reason: PAIN IN RT BALL OF FOOT Procedure Date: 07/13/2019 Accession Number: [id number] / [id number] Procedure: XR - Foot 3 View RT CPT Code: FULL RESULT: EXAM: RIGHT FOOT RADIOGRAPHY EXAM DATE: 07/13/2019 01:29 PM. CLINICAL HISTORY: PAIN IN RT BALL OF FOOT. COMPARISON: FOOT 3 VIEW RT 05/16/2017 9:18 AM. TECHNIQUE: 3 views. FINDINGS: Bones: Bony overgrowth first metatarsal head. Mild metatarsus adductus. Achilles tendon, plantar heel spur. Joints: Joint space narrowing first metatarsophalangeal joint. Talonavicular osteophyte. Soft Tissues: Normal. No soft tissue swelling. IMPRESSION: DJD. Bunion formation RADIA
== END 2019-07-13 13:05 | disposition home or self-care (01) ==
LOC: DI 13:04
PROVIDERS: ATTEND Podiatrist
DX: M19.071 Primary osteoarthritis, right ankle and foot (principal); M21.611 Bunion of right foot

== ENCOUNTER 2019-08-09 12:52 | Outpatient (CLI) | payer BC ==
[2019-08-09] MEDS ORDERED: BUFFERED LIDOCAINE 10 ML SYRINGE ONE ×2 (13:21)
[2019-08-09] MEDS ORDERED: BUFFERED LIDOCAINE 10 ML SYRINGE IU ONE (14:57)
--- NOTE | 2019-08-09 15:23 | Ultrasound Report ---
Reason: TANNER CYSTS ON BILATERAL KNEES Procedure Date: 08/09/2019 Accession Number: [id number] / [id number] Procedure: US - US Drain/Inj Joint/Bursa W US CPT Code: 62766 FULL RESULT: EXAM: ULTRASOUND-GUIDED TANNER CYST DRAINAGE BILATERALLY. EXAM DATE: 08/09/2019 02:13 PM. CLINICAL HISTORY: Tanner cysts on bilateral knees. COMPARISON: None. TECHNIQUE: Risks, benefits, and alternatives to the procedure were discussed with the patient. All questions answered. Written and verbal consent obtained. Patient was placed in the prone position and the skin overlying the popliteal fossae and cysts marked with sonographic guidance. The skin was sterilely prepped and draped, and 1% buffered lidocaine was used for local anesthesia. An 18-gauge needle was advanced into the popliteal fossa cyst and fluid aspirated on both sides. Upon completion, the needle was removed. FINDINGS: A total of 10 mL of fluid was removed from the right side and a total of 8 mL of fluid was removed from the left side without immediate complication. Patient tolerated procedure well. IMPRESSION: Ultrasound-guided bilateral Bakers cyst aspiration without immediate complications. RADIA
== END 2019-08-09 12:53 | disposition home or self-care (01) ==
LOC: DI 12:52
PROVIDERS: ATTEND Orthopaedic Surgery
DX: M71.22 Synovial cyst of popliteal space [Baker], left knee (principal); M71.21 Synovial cyst of popliteal space [Baker], right knee
CPT/HCPCS: 20611

== ENCOUNTER 2019-08-23 11:12 | Outpatient (CLI) | payer BC ==
[2019-08-23 18:05] VITALS: BP 140/80
--- NOTE | 2019-08-23 18:05 | SLEEP CARE CONSULTATION ---
Information from patient questionnaire entered by Isis Pyle. I have reviewed and concur with the information entered by Isis Pyle. This document represents the service I personally performed and the decisions made by me, Tara Garcia, RN, MSN, [employer]. History of Present Illness Previous diagnosis: Mild, Obstructive Sleep Apnea-Hypopnea Syndrome AHI: 14.0 Reason for follow up: first compliance, other (transfer DME ) Equipment obtained from: [facility] (having problems getting supplies and contact for mask concerns.) Mask style: Full face Mask brand: Respironics Backup mask available: No Last cushion change: no - obtained wrong size Prior sleep studies: Yes (Homestudy) Subjective Patient concerns: reports: air blowing in eyes (takes off mask. ), mask leak noise (wakes her up and so takes off. ), dry mouth, nose, throat (daily), other (pain from knees and back also interrupt sleep. ). denies: aerophagia, mask discomfort (so wears a eye mask), condensation in mask/hose, nasal congestion, epistaxis Observed to snore while using device: No (but sleeps alone) Current pressure setting perceived as: too high On therapy, patient: reports: more rested overall. denies: sleeping better, a wakening more refreshed, being more awake and alert during the day (a little more alert), drowsiness while driving Initial [place] Sleepiness Scale score: 12 Allergies and Home Medications Known drug allergies: No Home medication list reviewed: Yes Allergy and home medication list: Medication Name (generic/name brand) Strength & Dosage Armor Thyroid 90mcg tab one daily Metformin 500mg tab one daily Vitamin C 3000mg tab three daily Vitamin D3 5000IU cap one daily Multiple Vitamins Tab two daily Dim Detox Tab two daily Famotidine 10mg tab 2-3 daily CoQ10 Ibuprofen 200mg tab 8-12 daily as needed Fish Oil One tablespoon daily Melatonin 5mg tab one daily OTC sleep aid 25mg tab daily CBD pill B Super Complex Tab one daily Magnesium Citratr 250mg tab one daily Vitamin B-12 1000mcg tab one daily N-Acetyl, L-Cysteine 600mg tab one daily Physical Exam Blood Pressure: 140/80 Cuff size: long Heart Rate: 56 (irregular with pauses noted about 4-5 times over one minute) O2 Saturation: 98 Height: 5 ft 6.25 in Weight: 203 lb Body Mass Index: 32.5 BMI Classification: Obesity Class 1 Impression and Plan 1. Obstructive Sleep Apnea-Hypopnea Syndrome, mild , with unknown treatment compliance and apnea control. The data from [employer] was not accessable and the patient did not bring the data card ( brought the modem). Thus my staff will reach out to [employer] to get access to the data or the card will have to be brought in to office for download. I will call with the results when obtained and any change in plan of care. On CPAP therapy, the patient reports worse sleep quality due to mask leaks. However, she is slightly more alert and rested during the day and would like to continue therapy. For her mask leak concerns while sleeping on her side. I showed her a CPAP pillow which can be bought on line for about $60 or other style. Since her apnea is primarily on her back, if she is unable to use CPAP, she is advised to sleep on her side with pillow positioning. However, she reports back and knee pain and reports needing to adjust position frequently for comfort. She also reports that the CPAP pressure wakes her being too high and will have to use the ramp in the middle of the night so I will prescribe her CPAP pressure to be reduced to 4-6cmH20. She also reports frustration with trying to get service for questions or supplies from [employer]. She would like to use another company. I explained that if her device is not yet paid for or she is not compliant, she may have to return the CPAP and restart with another company. I will have my clerical coordinator check and inform her of other DME choices. I would also need to make a DWO prescription for transfer once it is known best course of action for patient. Patient would like to pursue. Patient's apnea severity and rationale for treatment to reduce apnea, improve sleep quality and reduce cardiovascular and cerebrovascular events was reviewed. I also reviewed the benefit of consistent device use of CPAP for hypertension, diabetes, depression/anxiety. 2. Arrhythmia, irregular rate, 4-5 pauses / extra beats a minute noted over 1-2 minutes at beginning and end of visit. She denies chest pain, shortness of breath or lightheadedness. She states she was recently informed that she had an irregular heart rate and was evaluated a couple of months ago with an EKG and no treatment indicated. I do not have records of an EKG and her last PCP note on chart indicates a regular heart rate. She declined EKG offer today at hospital for further evaluation and would like to speak to her provider first. Thus I advised patient to check with her provider for further evaluation and agreed with plan. I explained the importance of knowing whether her irregular heart rate is the same as before or if it has changed and now needs treatment. Some arrhythmias can increase risk of heart attack and stroke. I also explained that sometimes a holter monitor is also done for further evaluation over a longer period of time depending on EKG and history which her PCP can discuss with her. * * Change CPAP pressure to 4-6 cmH2O * obtain compliance report. * CPAP pillow * Transfer of care * Notify me if snoring with mask or feeling that the pressure is too much or too little * Attempt to lose weight * Follow up with PCP for further evaluation of irregular heart rhythm * Return for follow up in 1-2 months , or sooner if concerns arise * * Addendum: at 1300, I called and left a message at her PCP Alex Gan's office of patient's irregular heart rate as noted above, asymptomatic and that patient would be contacting for further evaluation. * * * Addendum 08-31-19 The patient brought her compliance card in 08/30/19 - * She was 80% compliance of using CPAP more than 4 hours a day from 06/21/29- 07/20/19 and used CPAP an average of 4.9 hours nightly with most use of 7 hours and 47 minutes. * Her average residual AHI was 14.1 with an average large leak of 18 minutes and average mean pressure of 7.4 and average 90% pressure of 10.1cmH20. CA 4.4, OA 2.9 and hypopnea 3.5. * * The past 30 days showed 50% compliance and an average of 4.8 hours of use with 8 missed days of use. Her residual KEVON was 10.8 with average mean pressure of 7.6cmH20 and average <90% pressure of 10.3cmH20 * It appears the AHI is less with less mask leaks. * * Because of patient waking to high pressure requiring use of ramp and I will reduce autoCPAP pressure with goal of 4-8 cmH20 after reviewing compliance for comfort of patient and better control of apnea once I discuss with patient to recheck her symptoms. * Since she has met compliance, I can make a transfer to another company for supplies only to assist her to get her supplies. * I will again check to see if we have access with modem yet, if not the pressure can be changed in office if patient brings in her device. * * Patient called at 17:15 and informed of compliance results and plan to reduce her CPAP pressure to comfort. She is not yet to goal of getting residual AHI below 5 but first is to get the patient comfortable so can use through the night. Right now she is taking off after a few hours of use due to pressure discomfort. I still do not have access to [employer] to change pressure and was told that [facility] is working on this. Until then, patient advised to bring in device for pressure change this week and reminded of days of operation. I also explained if unable to achieve optimal control of her apnea with in office adjustments, a manual titration study will be ordered. * * I will also make a transfer for supplies only per patient request. She is working with insurance who she can get the supplies from. In addition, she states she is planning on knee surgery in late September. Thus she was advised to take her CPAP with her to use in recovery with rationale discussed. She is again advised to follow up with her PCP on further evaluation of her irregular heart rate with rationale discussed again. I spent 100% of this 40 minute visit face to face with the patient with greater than 50% of this was spent time counseling the patient and coordination of care.
== END 2019-08-23 11:13 | disposition home or self-care (01) ==
LOC: SC 11:12
PROVIDERS: ATTEND Nurse Practitioner Family
DX: G47.33 Obstructive sleep apnea (adult) (pediatric) (principal); I49.9 Cardiac arrhythmia, unspecified; E66.9 Obesity, unspecified; Z68.32 Body mass index [BMI] 32.0-32.9, adult
CPT/HCPCS: 99212; 99215

== ENCOUNTER 2019-10-27 14:55 | Outpatient (CLI) | payer BC | END 2019-10-27 14:56 | disposition critical access hospital (66) | LOC: EMS 14:55 | PROVIDERS: ATTEND Surgery | DX: R55 Syncope and collapse (principal); Z96.651 Presence of right artificial knee joint; R42 Dizziness and giddiness | CPT/HCPCS: A0425; A0429 ==

== ENCOUNTER 2019-10-27 15:24 | Observation (INO) | payer BC ==
--- NOTE | 2019-10-27 15:37 | ED Physician Documentation ---
PD HPI SYNCOPE - Stated complaint Stated Complaint: SYNCOPE - Chief complaint Chief Complaint: Neuro - History obtained from History obtained from: Patient (Last she had her right knee replaced. She was placed on warfarin prophylactically postop but it does not sound like there was any plan to check INR's. First postop appointment is on the of this month. She was a little more active today and did not eat or drink much. She got up and started to feel dizzy for about a minute and then passed out without injury except she feels like she may have hyperflexed her knee. Feels back to normal now without specific complaints. No chest pain or trouble breathing.) Review of Systems Ten Systems: 10 systems reviewed and negative Constitutional: denies: Fever, Chills, Fatigue Nose: denies: Rhinorrhea / runny nose, Congestion Cardiac: denies: Chest pain / pressure, Palpitations Respiratory: denies: Dyspnea, Cough GI: denies: Abdominal Pain, Nausea, Vomiting, Diarrhea PD PAST MEDICAL HISTORY - Past Medical History Cardiovascular: None Respiratory: None Endocrine/Autoimmune: HyPOthyroidism, Other (pre-diabetes.) GI: Other [employer]ER [employer] NET OR TRAP: None : None HEENT: Chronic vision loss Psych: None Musculoskeletal: None Derm: None - Past Surgical History Past Surgical History: Yes General: Bowel surgery Ortho: ACL reconstruction, Other /FISHER POUND NET OR TRAP: Oophrectomy Derm: Skin cancer surgery - Present Medications Home Medications: Ambulatory Orders Medication Instructions Recorded Confirmed Thyroid,Pork [[place] Thyroid] 90 mg PO DAILY 06/18/17 10/22/17 metFORMIN [Glucophage] 500 mg PO DAILY 06/18/17 10/22/17 Multivitamin [Multiple Vitamins] 1 each PO DAILY 10/15/17 10/22/17 oxyCODONE/ACET 5/325 [Percocet 5 1 - 2 tab PO Q4HR PRN #40 tablet 10/26/17 mg/325 mg] - Allergies Allergies/Adverse Reactions: Allergies Allergy/AdvReac Type Severity Reaction Status Date / Time gluten Allergy Nausea Verified 10/27/19 15:32 milk AdvReac Cramps Verified 10/27/19 15:32 - Social History Does the pt smoke?: No Smoking Status: Former smoker Does the pt drink ETOH?: No Does the pt have substance abuse?: No - Immunizations Immunizations are current?: Yes - POLST Patient has POLST: No POLST Status: Full Code PD ED PE NORMAL - Vitals Vital signs reviewed: Yes - General General: Alert and oriented X 3, No acute distress - HEENT HEENT: PERRL, EOMI - Neck Neck: Supple, no meningeal sign, No bony TTP - Cardiac Cardiac: Other (Frequent extrasystoles, she says she has a heart murmur but I do not appreciate it.) - Respiratory Respiratory: No respiratory distress, Clear bilaterally - Abdomen Abdomen: Soft, Non tender - Back Back: No CVA TTP, No spinal TTP - Derm Derm: Normal color, Warm and dry - Extremities Extremities: No edema, No calf tenderness / cord - Neuro Neuro: Alert and oriented X 3, lead presser 2-12 intact, Normal speech Eye Opening: Spontaneous Motor: Obeys Commands Verbal: Oriented GCS Score: 15 - Psych Psych: Normal mood, Normal affect Results - Vitals Vitals: Vital Signs - 24 hr 10/27/19 10/27/19 10/27/19 15:26 16:38 18:27 Temperature 36.7 C Heart Rate 76 74 80 Respiratory 16 15 14 Rate Blood Pressure 143/87 H 141/84 H 146/79 H O2 Saturation 94 95 96 Oxygen O2 Source Room air - EKG (time done) 1537 Rate: Rate (enter#) (76) Rhythm: NSR [place]: Normal Intervals: Normal NC QRS: Normal Ischemia: Q waves (inferior) Computer interpretation: Agree with computer - Labs Labs: Laboratory Tests 10/27/19 10/27/19 10/27/19 16:48 16:48 16:48 WBC 9.7 RBC 4.20 Hgb 12.6 Hct 38.7 MCV 92.1 MCH 30.0 MCHC 32.6 RDW 13.1 Plt Count 322 MPV 9.1 Neut # (Auto) 7.6 H Lymph # (Auto) 1.3 L Leon # (Auto) 0.7 Eos # (Auto) 0.2 Baso # (Auto) 0.0 Absolute Nucleated RBC 0.00 Nucleated RBC % 0.0 PT 14.5 H INR 1.3 H Sodium 139 Potassium 4.0 Chloride 100 L Carbon Dioxide 29 Anion Gap 10.0 BUN 20 Creatinine 0.9 Estimated GFR (MDRD) 63 L Glucose 116 H Calcium 9.1 Total Bilirubin 0.7 AST 20 ALT 19 Alkaline Phosphatase 59 Troponin I High Sens Total Protein 6.9 Albumin 3.6 Globulin 3.3 Albumin/Globulin Ratio 1.1 Lipase 31 Urine Color Urine Clarity Urine pH Ur Specific [place] Urine Protein Urine Glucose (UA) Urine Ketones Urine Occult Blood Urine Nitrite Urine Bilirubin Urine Urobilinogen Ur Leukocyte Esterase Ur Microscopic Review Urine Culture Comments 10/27/19 10/27/19 16:48 17:25 WBC RBC Hgb Hct MCV MCH MCHC RDW Plt Count MPV Neut # (Auto) Lymph # (Auto) Leon # (Auto) Eos # (Auto) Baso # (Auto) Absolute Nucleated RBC Nucleated RBC % PT INR Sodium Potassium Chloride Carbon Dioxide Anion Gap BUN Creatinine Estimated GFR (MDRD) Glucose Calcium Total Bilirubin AST ALT Alkaline Phosphatase Troponin I High Sens 3.4 Total Protein Albumin Globulin Albumin/Globulin Ratio Lipase Urine Color YELLOW Urine Clarity CLEAR Urine pH 7.0 Ur Specific [place] 1.015 Urine Protein NEGATIVE Urine Glucose (UA) NEGATIVE Urine Ketones NEGATIVE Urine Occult Blood NEGATIVE Urine Nitrite NEGATIVE Urine Bilirubin NEGATIVE Urine Urobilinogen 0.2 (NORMAL) Ur Leukocyte Esterase NEGATIVE Ur Microscopic Review NOT INDICATED Urine Culture Comments NOT INDICATED PD MEDICAL DECISION MAKING - ED course ED course: 64-year-old woman with syncope, perioperatively she was on warfarin for prophylaxis, but her INR was only 1.[address] was done showing small PEs. Intermittently on bigeminy on the monitor as well. No evidence of right heart strain on CT. She was given Lovenox here and I spoke with Dr. Fisher for observation at 7:30 PM. Departure - Departure Disposition: ED Place in Observation Clinical Impression: Syncope, Pulmonary embolism, Esophageal thickening Condition: Serious
--- NOTE | 2019-10-27 16:13 | XRAY Report ---
Reason: knee injury Procedure Date: 10/27/2019 Accession Number: [id number] / [id number] Procedure: XR - Knee 2 View RT CPT Code: Final Report FULL RESULT: EXAM: RIGHT KNEE RADIOGRAPHY EXAM DATE: 10/27/2019 03:57 PM. CLINICAL HISTORY: Syncopal episode. Right knee injury. Right knee replacement this past . COMPARISON: KNEE 1-2 VIEWS, RIGHT 10/21/2019 10:43 AM. TECHNIQUE: 2 views. FINDINGS: Bones: Post total knee arthroplasty. The prosthesis is intact. Retained hardware from remote ACL repair. No acute fracture. Joints: Normal alignment. Postoperative effusion and debris in the supra patellar joint space. Soft Tissues: Small curvilinear osseous density adjacent to the medial femoral epicondyle, likely represent a sequela of remote MCL injury. No evident focal soft tissue swelling. IMPRESSION: Stable appearance of right knee prosthesis. No acute fracture. RADIA
[2019-10-27 16:54] LABS: BASOPHILS % (AUTO) 0.3 %; EOSINOPHILS # (AUTO) 0.2 10^3/uL (0.0-0.7); EOSINOPHILS % (AUTO) 1.8 %; HGB - HEMOGLOBIN 12.6 g/dL (12.0-16.0); LYMPHOCYTES # (AUTO) 1.3 10^3/uL (1.5-3.5); LYMPHOCYTES % (AUTO) 12.8 %; MEAN CORPUSCULAR HGB CONC 32.6 g/dL (32.0-36.0); MEAN CORPUSCULAR VOLUME 92.1 fL (81.0-99.0); MEAN PLATELET VOLUME 9.1 fL (7.9-10.8); MONOCYTES # (AUTO) 0.7 10^3/uL (0.0-1.0); MONOCYTES % (AUTO) 6.8 %; NEUTROPHILS # (AUTO) 7.6 10^3/uL (1.5-6.6); NEUTROPHILS % (AUTO) 77.8 %; PLT - PLATELET COUNT 322 10^3/uL (130-450); RED CELL DISTRIBUTION WIDTH 13.1 % (12.0-15.0); WHITE BLOOD COUNT 9.7 x10^3/uL (4.8-10.8)
[2019-10-27 17:01] LABS: INR 1.3 (0.8-1.2); PT - PROTHROMBIN TIME 14.5 secs (9.9-12.6)
[2019-10-27 17:07] LABS: ALBUMIN 3.6 g/dL (3.2-5.5); ALBUMIN/GLOBULIN RATIO 1.1 (1.0-2.2); BILIRUBIN,TOTAL 0.7 mg/dL (0.2-1.0); CALCIUM 9.1 mg/dL (8.5-10.3); CREATININE 0.9 mg/dL (0.4-1.0); TOTAL PROTEIN 6.9 g/dL (6.7-8.2)
[2019-10-27] MEDS ORDERED: IOVERSOL 320 100 ML VIAL IVP ONE ×2 (17:24→18:47)
[2019-10-27 17:33] LABS: BILIRUBIN,URINE NEGATIVE (NEGATIVE); CLARITY,URINE CLEAR (CLEAR); GLUCOSE, URINE (UA) NEGATIVE (NEGATIVE); KETONES,URINE (UA) NEGATIVE (NEGATIVE); LEUKOCYTE ESTERASE, URINE NEGATIVE (NEGATIVE); NITRITE,URINE NEGATIVE (NEGATIVE); OCCULT BLOOD,URINE NEGATIVE (NEGATIVE); PROTEIN,URINE NEGATIVE (NEGATIVE); UROBILINOGEN,URINE 0.2 (NORMAL) E.U./dL (NORMAL)
[2019-10-27] MEDS ORDERED: ENOXAPARIN 100 MG/ML SYRINGE SUBQ STA (17:56)
[2019-10-27] MEDS ORDERED: oxyCODONE 5 MG TABLET PO STA (18:16)
--- NOTE | 2019-10-27 18:43 | CT Report ---
Reason: PE protocol, post op syncope Procedure Date: 10/27/2019 Accession Number: [id number] / [id number] Procedure: CT - ANGIO CHEST W/WO CPT Code: Final Report FULL RESULT: EXAM: CT ANGIOGRAM CHEST EXAM DATE: 10/27/2019 06:01 PM. CLINICAL HISTORY: Postoperative syncope. Rule out pulmonary embolus. COMPARISON: None. TECHNIQUE: Routine helical imaging was performed through the chest in the pulmonary arterial phase. IV Contrast: 65 mL Optiray 320. Reconstructions: Coronal 3-D MIP reconstructions.Sagittal and coronal. In accordance with CT protocol optimization, one or more of the following dose reduction techniques were utilized for this exam: automated exposure control, adjustment of mA and/or KV based on patient size, or use of iterative reconstructive technique. FINDINGS: Pulmonary Arteries: Diagnostic quality: Adequate through the segmental arteries. Small nonocclusive acute segmental emboli in the anterior and apical right upper lobe and posterior and anterior basilar right lower lobe. RV/LV is within normal limits. There is no interventricular septal bowing. There is no reflux of contrast material in the IVC. Lungs/Pleura: Focal scarring with volume loss in the lateral right middle lobe. Mild linear bibasilar atelectasis or scarring. No pleural effusion or pneumothorax. Mediastinum: Heart size is normal. No pericardial effusion. No aortic aneurysm or dissection. No adenopathy. Upper Abdomen: Unremarkable. Bones: Mild degenerative changes within the spine. No acute bony abnormality. Other: Circumferential thickening of the distal esophageal wall with adjacent fat stranding. IMPRESSION: 1. Small nonocclusive acute segmental emboli in the right upper and lower lobes. 2. Focal scarring with volume loss in the lateral right middle lobe. 3. Circumferential thickening of the distal esophageal wall with adjacent fat stranding, possibly representing esophagitis. Recommend GI consultation as malignancy can have a similar appearance. RADIA The critical result notification system was initiated by Dr. Sera Jones at 06:39 PM on 10/27/2019. The above critical result findings were discussed with Lul Hubbard by Dr. Sera Jones at 06:42 PM on 10/27/2019.
[2019-10-27] MEDS ORDERED: SODIUM CHLORIDE FLUSH 0.9% 10 ML SYRINGE IVP PRN (19:30)
[2019-10-27] MEDS ORDERED: ONDANSETRON 4 MG/2 ML VIAL IVP PRN (19:30)
[2019-10-27] MEDS: INSULIN ASPART 300 UNIT/3 ML PEN SUBQ SCH (20:58)
[2019-10-27] MEDS ORDERED: diphenhydrAMINE 25 MG CAPSULE PO PRN (21:35)
--- NOTE | 2019-10-27 21:40 | HISTORY & PHYSICAL EXAMINATION ---
Chief Complaint - Chief Complaint Chief Complaint: Syncope History of Present Illness - Admitted From Admitted From:: Home - History Obtained From Records Reviewed: Yes History obtained from: Patient, Spouse, ER Physician, EMR - History of Present Illness HPI Comment/Other: This is a 64-year-old female with a past medical history significant for hyp othyroidism, prediabetes on metformin, osteoarthritis of the right knee status post total knee arthroplasty who presents today after having a syncopal episode this afternoon. The patient reports she underwent a total right knee arthroplasty this past at [facility]. She was observed overnight and discharged the following day. She was sent home on Coumadin for DVT prophylaxis. She states she has been taking it every day but she has not had an INR check. She reports she been doing well at home until this afternoon when she passed out while sitting on the seat of her walker. She states she initially standing but started to feel lightheaded so she sat down on the seat. She said she continued to feel lightheaded and the next thing she knew, she was leaning backwards on the seat and then she passed out. Her spouse was able to come to her aid immediately and he believes she was passed out for about 1 minute. She did slide off of the seat she was sitting on in the believes she might of potentially hit her head although if so it was very mild. The patient states that immediately after she gained consciousness, she continued to feel lightheaded and nauseous and had 2 episodes of emesis. She was concerned that she might have bent her right knee more than 90 degrees. She reports no chest pain or palpitations prior to the event. Currently is not complaining of chest pain or dyspnea. She states that she did have one syncopal episode a couple of years back when she had a colostomy in place after she underwent emergent surgery for diverticulitis with perforation. She states that at that time, she was emptying her colostomy bag when it leaked and that she had stool all over her and the next thing she knew she fainted. She reports no cardiac history to her knowledge although she states she was told she had a murmur a few months ago. She does have obstructive sleep apnea and is compliant with CPAP therapy. She reports no fevers, chills, dysuria. She reports that her mother had a history of blood clots but this is the patient's first episode. She denies any history of bleeding or bleeding tendencies. In the emergency department, she is found to be afebrile temperature of 36.7. Her heart rate was 76. She was slightly hypertensive with a blood pressure of 143/87. Her respiratory rate is 16. She is saturating 95% on room air. Her labs were significant for an INR of 1.3. Troponin was negative at 4.2. EKG reveals sinus rhythm with flattening of T waves in leads III and aVF. CTA of the chest revealed small nonocclusive acute segmental emboli in the right upper and lower lobes. X-ray of the right knee reveals a stable appearance of the right knee prosthesis. While in the emergency department, her rhythm became ventricular bigeminy. Given these findings, medicine was consulted for admission. I did discuss goals of care with the patient she would like to be a full code. History - Past Medical History Cardiovascular: reports: None Respiratory: reports: None Endocrine/Autoimmune: reports: HyPOthyroidism, Other (Prediabetes) GI: reports: Diverticulitis COAL WEIGHER: reports: None : reports: None HEENT: reports: Chronic vision loss Psych: reports: None Musculoskeletal: reports: Osteoarthritis Derm: reports: None MRSA Hx?: No - Past Surgical History General: reports: Bowel surgery Ortho: reports: Knee replacement, ACL reconstruction /COAL WEIGHER: reports: Oophrectomy Derm: reports: Skin cancer surgery - Family & Social History Family History Comment/Other: She reports her mother had a history of blood clots and the first occurrence was when she was with the patient. She reports her father is also a prediabetic. She believes her grandfather had cardiac problems. Living arrangement: At home Living Situation: With spouse/s.o. Social History Notes: She lives on [address] with her , Scott. 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 She has smoked on and off most of her life but quit 3 years ago. She said she smoked about half a pack a day when she was smoking. At times she quit up to 10 years but then picked up smoking again. She drinks alcohol on a social basis. - Substance History Use: Uses substance without health or social issues: NONE - POLST Patient has POLST: No POLST Status: Full Code Meds/Allgy - Home Medications Home Medications: Ambulatory Orders Medication Instructions Recorded Confirmed Thyroid,Pork [[place] Thyroid] 90 mg PO DAILY 06/18/17 10/22/17 metFORMIN [Glucophage] 500 mg PO DAILY 06/18/17 10/22/17 Multivitamin [Multiple Vitamins] 1 each PO DAILY 10/15/17 10/22/17 oxyCODONE/ACET 5/325 [Percocet 5 1 - 2 tab PO Q4HR PRN #40 tablet 10/26/17 mg/325 mg] - Allergies Allergies/Adverse Reactions: Allergies Allergy/AdvReac Type Severity Reaction Status Date / Time gluten Allergy Nausea Verified 10/27/19 15:32 milk AdvReac Cramps Verified 10/27/19 15:32 Review of Systems - Constitutional Constitutional: denies: Fatigue, Fever, Chills, Weakness, Poor appetite - Cardiovascular Cariovascular: reports: Lightheadedness, Syncope. denies: Palpitations, Chest pain, Edema, Exertional dyspnea, Decr. exercise tolerance - Respiratory Respiratory: denies: Cough, Sputum production, SOB at rest, SOB with exertion - Gastrointestinal Gastrointestinal: reports: Nausea, Vomiting. denies: Abdominal pain - Genitourinary Genitourinary: denies: Dysuria, Frequency, Urgency - Musculoskeletal Musculoskeletal: reports: Limited range of motion, Joint swelling - Integumentary Integumentary: denies: Rash - Neurological Neurological: reports: Dizziness. denies: General weakness, Focal weakness - Hematologic/Lymphatic Hematologic/Lymphatic: denies: Bruising, Blood clots, Bleeding tendencies - All Other Systems All Other Systems: reports: Reviewed and negative Prior Level of Functionality: She is independent with her ADLs. She is currently using a walker to ambulate given her recent total knee arthroplasty. Exam - Vital Signs Reviewed Vital Signs: Yes Vital Signs: Vital Signs x48h Temp Pulse Pulse Resp BP BP Pulse Ox 10/27/19 21:00 36.5 C 74 16 152/90 H 10/27/19 20:00 36.5 C 82 14 135/78 H 95 10/27/19 19:30 83 13 135/86 H 94 10/27/19 18:27 80 14 146/79 H 96 10/27/19 16:38 74 15 141/84 H 95 10/27/19 15:26 36.7 C 76 16 143/87 H 94 - Physical Exam General Appearance: positive: No acute distress, Alert Eyes Bilateral: positive: Normal inspection ENT: positive: ENT inspection nml Neck: positive: Nml inspection Respiratory: positive: No respiratory distress. negative: Wheezes, Rales, Rhonchi Cardiovascular: positive: Regular rate & rhythm, No murmur. negative: Tachycardia, Bradycardia, Systolic murmur, Diastolic murmur Abdomen: positive: Non-tender, No distention, Other (Prior incisional scars noted from expiratory laparotomy and colostomy takedown.). negative: Tenderness, Guarding, Rebound Skin: positive: No rash, Warm, Dry Extremities: positive: Pedal edema (Trace pitting edema in bilateral lower extremities.), Other (Her right lower extremity appears slightly more edematous than left lower extremity above the knee. Below the knee, they appear symmetrical). negative: Full ROM (Does have slight decreased range of motion in the right lower extremity at the knee) Neurologic/Psychiatric: positive: Oriented x3, Other (No focal motor deficits. Right lower extremity motor is limited secondary to pain at the knee.). negative: Disoriented to person, Disoriented to place, Disoriented to time Conclusion/Plan - Problem List (1) Syncope Conclusion/Plan: Syncope is concerning given the diagnosis of pulmonary embolism and the edita tricular bigeminy. Pulmonary embolism may possibly spleen syncope although on imaging, the clot burden is not that extensive. We will continue to monitor her on telemetry and trend her troponins which have been negative so far. We will also obtain echocardiogram in the morning. Will discuss with cardiology given the ventricular bigeminy if any other work-up or referral needs to be done. We can consider starting her on a beta-shyam as her blood pressure will tolerate it. Qualifiers: Encounter type: initial encounter (2) Acute pulmonary embolism without acute cor pulmonale Conclusion/Plan: Has acute provoked segmental right pulmonary embolism. There is no evidence of right heart strain on imaging troponin is negative. BNP slightly elevated but it has been higher in the past. She is on tachycardic or hypoxic. She received Lovenox in the emergency department. We will continue this for the time being. We will likely transition her to an oral NOAC on discharge. Will obtain Dopplers of lower extremity to evaluate for extensive DVT. (3) Ventricular bigeminy Conclusion/Plan: Her EKG here reveals a sinus rhythm but she is now in ventricular bigeminy on telemetry. Review of the EMR reveals that her last EKG in March of this year showed that she was in ventricular bigeminy at that moment. Her potassium is at 4 but we will check a magnesium to make sure it is optimized. We will also check a TSH given her history of hypothyroidism. Will obtain echocardiogram for st ructural evaluation. We will continue to monitor her on telemetry. (4) S/P total knee arthroplasty Conclusion/Plan: Status post right total knee arthroplasty 1 week ago at [facility]. Although she was concerned that she may have hyperflexed her knee, x-rays are negative in the emergency department. We will continue her on her home oxycodone, Tylenol, Colace Qualifiers: Laterality: right Qualified Code(s): Z96.651 - Presence of right artificial knee joint (5) Esophageal thickening Conclusion/Plan: This is evident on the CTA of the chest and she will require outpatient endoscopy. It was discussed the patient reports she does have occasional GERD that began about 1 year ago. We will start her on Protonix and she was asked to follow-up with her outpatient provider to be referred for endoscopy and she is agreeable to this. (6) Prediabetes Conclusion/Plan: She is on metformin at home. We will place on sliding scale and a carb controlled diet while hospitalized. (7) Hypothyroidism Conclusion/Plan: We will check a TSH in the morning and resume her home medication. - Lab Results Lab results reviewed: Yes Fish Bones: 10/28/19 04:25 10/28/19 04:25 - Diagnostic Imaging Results Diagnostic Imaging Results: positive: Final report reviewed - EKG Results EKG Interpreted Independently: Yes EKG Comparison: Changed from prior EKG EKG Findings: Her EKG reveals a sinus rhythm with flattening of the T waves in leads III and aVF. There are also Q waves noted in leads III and aVF. This is changed compared to her EKG back in March 2019 which showed a sinus rhythm and ventricular bigeminy. Core Measures - Anticipated LOS I expect patient to be DC'd or transferred within 96 hours.: Yes - Issues Hospital Issues and Management Plan: This is a 64-year-old female presenting with syncope after right total knee arthroplasty. She is found to have small segmental pulmonary embolism. While in the emergency department, she can be in ventricular bigeminy. She will be admitted for further management of her pulmonary embolism and work-up of the syncope. - DVT/VTE - Prophylaxis VTE/DVT Device ordered at admit?: No Not Ordered - Medical Reason: Not indicated VTE/DVT Prophylaxis med ordered at admit?: Yes
[2019-10-27] MEDS ORDERED: BENZOCAINE/MENTHOL LOZENGE MM PRN (22:17)
[2019-10-27] MEDS: oxyCODONE 5 MG TABLET PO PRN (22:53)
[2019-10-27] MEDS: SODIUM CHLORIDE FLUSH 0.9% 10 ML SYRINGE IVP SCH (23:47)
[2019-10-27] MEDS: ACETAMINOPHEN 325 MG TABLET PO PRN (23:47)
--- NOTE | 2019-10-28 00:04 | Ultrasound Report ---
Reason: PE. Eval for DVT. Procedure Date: 10/27/2019 Accession Number: [id number] / [id number] Procedure: US - Duplex Ext Veins Bilateral CPT Code: Final Report FULL RESULT: EXAM: BILATERAL LOWER EXTREMITY VENOUS ULTRASOUND EXAM DATE: 10/27/2019 11:20 PM. CLINICAL HISTORY: Pulmonary embolism. COMPARISON: None. TECHNIQUE: Real-time sonographic vascular imaging was performed by the supervisor uranium processing through the lower extremities utilizing both color-flow and Doppler spectral analysis. Multiple retail wireless sales representative static images were saved for review. FINDINGS: Right: Common Femoral Vein (CFV): Normal. CFV-GSV Junction: Normal. Profunda Femoral Vein (PFV): Normal. Femoral Vein (FV) Prox: Normal. Femoral Vein (FV) Mid: Normal. Femoral Vein (FV) Dist: Normal. Popliteal Vein: Normal. Posterior Tibial Veins: Limited evaluation. No gross evidence of thrombus. Peroneal Veins: Limited evaluation. No gross evidence of thrombus. Left: Common Femoral Vein (CFV): Normal. CFV-GSV Junction: Normal. Profunda Femoral Vein (PFV): Normal. Femoral Vein (FV) Prox: Normal. Femoral Vein (FV) Mid: Normal. Femoral Vein (FV) Dist: Normal. Popliteal Vein: Normal. Posterior Tibial Veins: Normal. Peroneal Veins: Limited evaluation. No gross evidence of thrombus. Other: A hypoechoic debris-containing fluid collection is seen in the posteromedial right knee measuring 5.2 x 1.1 x 2.6 cm. No internal vascularity is seen. A cyst is seen in the posterior medial left knee measuring 3.1 x 1.1 x 1.2 cm. No internal vascularity is seen. IMPRESSION: 1. No evidence for deep venous thrombosis bilaterally. 2. Hypoechoic debris-containing collection in the posterior right knee may represent debris-containing recurrent Tanner's cyst versus hematoma. 3. Left Tanner's cyst. RADIA
[2019-10-28] MEDS: oxyCODONE 5 MG TABLET PO PRN ×3 (03:59→13:33)
[2019-10-28 05:01] LABS: BASOPHILS # (AUTO) 0.1 10^3/uL (0.0-0.1); BASOPHILS % (AUTO) 0.8 %; EOSINOPHILS # (AUTO) 0.5 10^3/uL (0.0-0.7); EOSINOPHILS % (AUTO) 6.8 %; HGB - HEMOGLOBIN 12.4 g/dL (12.0-16.0); LYMPHOCYTES # (AUTO) 2.8 10^3/uL (1.5-3.5); LYMPHOCYTES % (AUTO) 35.8 %; MEAN CORPUSCULAR HEMOGLOBIN 29.7 pg (27.0-31.0); MEAN CORPUSCULAR HGB CONC 30.8 g/dL (32.0-36.0); MEAN CORPUSCULAR VOLUME 96.2 fL (81.0-99.0); MEAN PLATELET VOLUME 9.5 fL (7.9-10.8); MONOCYTES # (AUTO) 0.7 10^3/uL (0.0-1.0); MONOCYTES % (AUTO) 8.4 %; NEUTROPHILS # (AUTO) 3.7 10^3/uL (1.5-6.6); NEUTROPHILS % (AUTO) 47.7 %; PLT - PLATELET COUNT 314 10^3/uL (130-450); RED BLOOD COUNT 4.18 10^6/uL (4.20-5.40); RED CELL DISTRIBUTION WIDTH 13.2 % (12.0-15.0); WHITE BLOOD COUNT 7.7 x10^3/uL (4.8-10.8)
[2019-10-28 05:16] LABS: CALCIUM 8.4 mg/dL (8.5-10.3); CREATININE 0.7 mg/dL (0.4-1.0); MAGNESIUM 2.1 mg/dL (1.7-2.8); PHOSPHORUS 3.7 mg/dL (2.5-4.6)
[2019-10-28] MEDS: ACETAMINOPHEN 325 MG TABLET PO PRN (06:32)
[2019-10-28] MEDS ORDERED: PANTOPRAZOLE 40 MG TABLET PO SCH (07:00)
[2019-10-28] MEDS ORDERED: THYROID 60 MG TABLET PO SCH (07:00)
[2019-10-28] MEDS ORDERED: MULTIVITAMIN W/MINERALS TABLET PO SCH (08:00)
[2019-10-28] MEDS ORDERED: RIVAROXABAN 15 MG TABLET PO SCH (08:00)
[2019-10-28] MEDS ORDERED: metFORMIN 500 MG TABLET PO SCH (08:00)
[2019-10-28] MEDS: INSULIN ASPART 300 UNIT/3 ML PEN SUBQ SCH ×2 (08:14→11:31)
[2019-10-28] MEDS ORDERED: DOCUSATE SODIUM 100 MG CAPSULE PO SCH (09:00)
[2019-10-28] MEDS ORDERED: ENOXAPARIN 80 MG/0.8 ML SYRINGE SUBQ SCH (09:00)
[2019-10-28] MEDS ORDERED: ENOXAPARIN 100 MG/ML SYRINGE SUBQ SCH (09:00)
[2019-10-28] MEDS: SODIUM CHLORIDE FLUSH 0.9% 10 ML SYRINGE IVP SCH (11:31)
--- NOTE | 2019-10-28 11:33 | PHARMACY PROGRESS NOTE ---
- Best Possible Medication History Admit Date and Time: 10/27/191929 Processed by: Pharmacy Medication History completed: Yes Patient Interview: Completed Secondary Source(s): Pharmacy records, Insurance records As the person ultimately responsible for medication therapy, providers are able to order a medication from an existing home medication list in [facility] via the "Reconcile Routine" prior to Confirmation of that medication by data support analyst. Such practice is discouraged except when the physician, in their clinical judgment, deems that a medical need exists for a medication without regard to previous use.
--- NOTE | 2019-10-28 12:05 | Discharge Plan ---
Discharge Plan Problem Reviewed?: Yes Disposition: Home, Self Care Condition: Stable Prescriptions: Rivaroxaban [Xarelto] 15 mg PO 0800,1800 #14 tablet Diet: Diabetic Activity Restrictions: Activity as Tolerated Assistance Devices: Walker Instruction Topics: Embolism Pulmonary, Syncope, Syncope Causes Health Concerns: You were in Observation Status here after you had fainting. The evaluation in the emergency room found that you have a pulmonary embolism (blood clot) in the lung. You also have skipped beats called PVCs, which you have had before, on a prior EKG. The other testing was stable. You may have fainted from either this lung blood clot, or from dehydration, or a low blood pressure, or low glucose level, or over-sedation from pain medications, or some other unknown reason. You may need further testing (like a 24 hour Holter monitor) done as an outpatient. You may NOT drive a car, because of the fainting spell, until you are cleared to do so by your PCP. You have been started on blood thinner (Xarelto) to treat the blood clot in the lungs. This treatment should continue for 3 months. A new prescription has been provided to you for the FIRST WEEK ONLY of pills, and sent electronically to your pharmacy. You need to see your PCP for refills for more tablets. Stop the Coumadin. You should see your Primary Care Provider in the office in the next 5 to 7 days for follow-up of this fainting spell, REFILL OF XARELTO, determination of whether you have a clotting defect (it could run in the family), any other concerns after your knee surgery that you may have, and to be cleared to resume driving. Restart all your pre-hospital medications except no Coumadin. You should resume your diabetic management including fingerstick glucose checks to make sure your are not too low in glucose level. If you have new or worsening symptoms, call your PCP for advice or come to the ER. Plan of Treatment: As above. Care Goals: Improvement in symptoms and stabilization are the goals. Assessment: The patient understands. No Smoking: If you smoke, Please STOP! Call for help. Follow-up with: Alex Kaufman ARNP [Primary Care Provider] -
[2019-10-28 12:43] VITALS: BP 157/89
--- NOTE | 2019-10-28 20:24 | DISCHARGE SUMMARY ---
Discharge Summary Admit Date: 10/27/19 Discharge Date: 10/28/19 Discharging Provider: Dr Jess Mcnair Primary Care Provider: Alex Kaufman Code Status: Attempt Resuscitation Condition at Discharge: Stable Discharge Disposition: 01 Home, Self Care - DIAGNOSES Admission Diagnoses: (1) Syncope (2) Acute pulmonary embolism without acute cor pulmonale (3) Ventricular bigeminy (4) S/P total knee arthroplasty (5) Esophageal thickening (6) Prediabetes (7) Hypothyroidism Discharge Diagnoses with Status of Each Condition: See below - HPI History of Present Illness: From the admission H&P of Dr Maikel Fisher: This is a 64-year-old female with a past medical history significant for hypothyroidism, prediabetes on metformin, osteoarthritis of the right knee status post total knee arthroplasty who presents today after having a syncopal episode this afternoon. The patient reports she underwent a total right knee arthroplasty this past at [facility]. She was observed overnight and discharged the following day. She was sent home on Coumadin for DVT prophylaxis. She states she has been taking it every day but she has not had an INR check. She reports she been doing well at home until this afternoon when she passed out while sitting on the seat of her walker. She states she initially standing but started to feel lightheaded so she sat down on the seat. She said she continued to feel lightheaded and the next thing she knew, she was leaning backwards on the seat and then she passed out. Her spouse was able to come to her aid immediately and he believes she was passed out for about 1 minute. She did slide off of the seat she was sitting on in the believes she might of potentially hit her head although if so it was very mild. The patient states that immediately after she gained consciousness, she continued to feel l ightheaded and nauseous and had 2 episodes of emesis. She was concerned that she might have bent her right knee more than 90 degrees. She reports no chest pain or palpitations prior to the event. Currently is not complaining of chest pain or dyspnea. She states that she did have one syncopal episode a couple of years back when she had a colostomy in place after she underwent emergent surgery for diverticulitis with perforation. She states that at that time, she was emptying her colostomy bag when it leaked and that she had stool all over her and the next thing she knew she fainted. She reports no cardiac history to her knowledge although she states she was told she had a murmur a few months ago. She does have obstructive sleep apnea and is compliant with CPAP therapy. She reports no fevers, chills, dysuria. She reports that her mother had a history of blood clots but this is the patient's first episode. She denies any history of bleeding or bleeding tendencies. In the emergency department, she is found to be afebrile temperature of 36.7. Her heart rate was 76. She was slightly hypertensive with a blood pressure of 143/87. Her respiratory rate is 16. She is saturating 95% on room air. Her labs were significant for an INR of 1.3. Troponin was negative at 4.2. EKG re veals sinus rhythm with flattening of T waves in leads III and aVF. CTA of the chest revealed small nonocclusive acute segmental emboli in the right upper and lower lobes. X-ray of the right knee reveals a stable appearance of the right knee prosthesis. While in the emergency department, her rhythm became ventricular bigeminy. - HOSPITAL COURSE Hospital Course: (1) Syncope Syncope was concerning given the diagnosis of pulmonary embolism (but clot burden was small) and the ventricular bigeminy. An Echo and troponins were done and were normal. She may have fainted from either this lung blood clot, or from dehydration, or a low blood pressure, or low glucose level, or over-sedation from pain medications, or some other unknown reason. She may need further testing (like a 24 hour Holter monitor) done as an outpatient. She was given orders not to drive because of the syncope, until cleared to do so by her PCP. (2) Acute pulmonary embolism without acute cor pulmonale This was acute provoked segmental right pulmonary embolism with no evidence of right heart strain on imaging and troponins were negative. Dopplers of lower extremities was neg for DVT. She received Lovenox in the emergency department then started on Xarelto 15 mg po bid for a week. The first week's supply was prescribed (I learned later that she paid out of pocket for this and that further orders need prior authorization, which should be done by the PCP). (3) Ventricular bigeminy Her EKG had a sinus rhythm but ventricular bigeminy on telemetry. Review of the EMR reveals that her last EKG in March of this year showed that she was in ventricular bigeminy at that moment. Her potassium and magnesium were normal. (4) S/P total knee arthroplasty Status post right total knee arthroplasty 1 week ago at [facility]. Although she was concerned that she may have hyperflexed her knee, x-rays are negative in the emergency department. We continued her on her home oxycodone and Tylenol. (5) Esophageal thickening This is evident on the CTA of the chest and she will require outpatient endoscopy. It was discussed the patient, who reported she does have occasional GERD that began about 1 year ago. We started her on Protonix and she was asked to follow-up with her outpatient provider to be referred for endoscopy and she is agreeable to this. (6) Prediabetes She is on metformin at home. She was on sliding scale and a carb controlled diet while hospitalized. (7) Hypothyroidism her home medication was continued. - ALLERGIES Allergies/Adverse Reactions: Allergies Allergy/AdvReac Type Severity Reaction Status Date / Time gluten Allergy Nausea Verified 10/27/19 15:32 milk AdvReac Cramps Verified 10/27/19 15:32 - MEDICATIONS Home Medications: Ambulatory Orders Medication Instructions Recorded Confirmed Thyroid,Pork [[place] Thyroid] 90 mg PO QDAC 06/18/17 10/28/19 metFORMIN [Glucophage] 500 mg PO DAILYWM 06/18/17 10/28/19 Multivitamin [Multiple Vitamins] 1 each PO DAILY 10/15/17 10/28/19 Acetaminophen 1,000 mg PO Q8H PRN 10/28/19 10/28/19 Celecoxib 100 mg PO BID 10/28/19 10/28/19 Docusate Sodium [Dss] 250 mg PO BID PRN 10/28/19 10/28/19 Rivaroxaban [Xarelto] 15 mg PO 0800,1800 #14 tablet 10/28/19 oxyCODONE [Roxicodone] 10 mg PO Q4H PRN 10/28/19 10/28/19 - PHYSICAL EXAM AT DISCHARGE General Appearance: positive: No acute distress, Alert Eyes Bilateral: positive: Normal inspection, PERRL ENT: positive: ENT inspection nml, No signs of dehydration Neck: positive: Nml inspection, No JVD Respiratory: positive: No respiratory distress Cardiovascular: positive: Regular rate & rhythm Abdomen: positive: Non-tender, No distention Skin: positive: Color nml Extremities: positive: No pedal edema Neurologic/Psychiatric: positive: Oriented x3, Other (Grossly intact.) - LABS Result Diagrams: 10/28/19 04:25 10/28/19 04:25 - DIAGNOSTIC IMAGING Diagnostic Imaging Results: Final report reviewed - FOLLOW UP Follow Up: PCP this upcoming week, possible referral to specialists. - TIME SPENT Time Spent in Discharge (Minutes): 45
== END 2019-10-28 14:44 | disposition home or self-care (01) ==
LOC: EDUNIT# → ED 15:24 → MS3 19:30
PROVIDERS: ADMIT Internal Medicine; ATTEND Internal Medicine
DX: R55 Syncope and collapse (principal); I26.99 Other pulmonary embolism without acute cor pulmonale; I49.8 Other specified cardiac arrhythmias; Z96.651 Presence of right artificial knee joint; K22.8 Other specified diseases of esophagus; R73.03 Prediabetes; E03.9 Hypothyroidism, unspecified; Z79.84 Long term (current) use of oral hypoglycemic drugs; Z87.891 Personal history of nicotine dependence
CPT/HCPCS: 36415; 71275; 73560; 80048; 80053; 81003; 83690; 83735; 83880; 84100; 84443; 84484; 85025; 85610; 93005; 93306; 93970; 96372; 99285; A9270; G0378; J1650; Q9967; 81001; 87086

== ENCOUNTER 2019-11-18 14:29 | Outpatient (CLI) | payer BC | END 2019-11-18 14:30 | disposition home or self-care (01) | LOC: LAB.S 14:29 | PROVIDERS: ATTEND Nurse Practitioner Family | DX: Z83.2 Family history of diseases of the blood and blood-forming organs and certain disorders involving the immune mechanism (principal) | CPT/HCPCS: 36415; 80053; 81241; 85025; 85384; 85610; 85730 ==

== ENCOUNTER 2019-11-19 10:09 | Outpatient (CLI) | payer BC ==
[2019-11-19 17:38] LABS: PT - PROTHROMBIN TIME 11.9 secs (9.9-12.6)
[2019-11-19 17:54] LABS: PARTIAL THROMBOPLASTIN TIME 49.5 secs (24.9-33.3)
[2019-11-19 18:28] LABS: BASOPHILS # (AUTO) 0.1 10^3/uL (0.0-0.1); BASOPHILS % (AUTO) 0.3 %; EOSINOPHILS # (AUTO) 0.6 10^3/uL (0.0-0.7); EOSINOPHILS % (AUTO) 3.8 %; HGB - HEMOGLOBIN 13.9 g/dL (12.0-16.0); LYMPHOCYTES # (AUTO) 1.1 10^3/uL (1.5-3.5); LYMPHOCYTES % (AUTO) 7.2 %; MEAN CORPUSCULAR HGB CONC 32.1 g/dL (32.0-36.0); MEAN CORPUSCULAR VOLUME 93.5 fL (81.0-99.0); MEAN PLATELET VOLUME 10.1 fL (7.9-10.8); MONOCYTES # (AUTO) 1.4 10^3/uL (0.0-1.0); MONOCYTES % (AUTO) 8.7 %; NEUTROPHILS # (AUTO) 12.5 10^3/uL (1.5-6.6); NEUTROPHILS % (AUTO) 79.4 %; PLT - PLATELET COUNT 318 10^3/uL (130-450); RED BLOOD COUNT 4.63 10^6/uL (4.20-5.40); RED CELL DISTRIBUTION WIDTH 13.8 % (12.0-15.0); WHITE BLOOD COUNT 15.8 x10^3/uL (4.8-10.8)
[2019-11-19 18:46] LABS: ALBUMIN 4.2 g/dL (3.2-5.5); ALBUMIN/GLOBULIN RATIO 1.4 (1.0-2.2); BILIRUBIN,TOTAL 0.7 mg/dL (0.2-1.0); CREATININE 0.9 mg/dL (0.4-1.0); TOTAL PROTEIN 7.2 g/dL (6.7-8.2)
== END 2019-11-19 10:10 | disposition home or self-care (01) ==
LOC: LAB.S 10:09
PROVIDERS: ATTEND Nurse Practitioner Family
DX: Z83.2 Family history of diseases of the blood and blood-forming organs and certain disorders involving the immune mechanism (principal)
CPT/HCPCS: 36415; 80053; 81241; 85025; 85384; 85610; 85730

== ENCOUNTER 2019-11-25 15:14 | Outpatient (CLI) | payer BC ==
[2019-11-25 18:04] LABS: BASOPHILS % (AUTO) 0.4 %; EOSINOPHILS # (AUTO) 0.7 10^3/uL (0.0-0.7); EOSINOPHILS % (AUTO) 8.8 %; HGB - HEMOGLOBIN 13.3 g/dL (12.0-16.0); LYMPHOCYTES # (AUTO) 1.9 10^3/uL (1.5-3.5); LYMPHOCYTES % (AUTO) 24.6 %; MEAN CORPUSCULAR HEMOGLOBIN 30.1 pg (27.0-31.0); MEAN CORPUSCULAR HGB CONC 32.8 g/dL (32.0-36.0); MEAN CORPUSCULAR VOLUME 91.6 fL (81.0-99.0); MEAN PLATELET VOLUME 10.2 fL (7.9-10.8); MONOCYTES # (AUTO) 0.7 10^3/uL (0.0-1.0); MONOCYTES % (AUTO) 9.8 %; NEUTROPHILS # (AUTO) 4.2 10^3/uL (1.5-6.6); PLT - PLATELET COUNT 318 10^3/uL (130-450); RED BLOOD COUNT 4.42 10^6/uL (4.20-5.40); RED CELL DISTRIBUTION WIDTH 13.6 % (12.0-15.0); WHITE BLOOD COUNT 7.5 x10^3/uL (4.8-10.8)
== END 2019-11-25 15:15 | disposition home or self-care (01) ==
LOC: LAB.S 15:14
PROVIDERS: ATTEND Nurse Practitioner Family
DX: G72.49 Other inflammatory and immune myopathies, not elsewhere classified (principal)
CPT/HCPCS: 36415; 85025; 85651; 86141

== ENCOUNTER 2020-03-08 15:34 | Outpatient (CLI) | payer BC ==
--- NOTE | 2020-03-08 13:39 | SLEEP CARE CONSULTATION ---
Information from patient questionnaire entered by Yane Anderson. I have reviewed and concur with the information entered by Yane Anderson. This document represents the service I personally performed and the decisions made by me, Tara Garcia, RN, MSN, MANAGER OF PURCHASING. History of Present Illness Service Date and Time: 03/08/2020 1534 Previous diagnosis: Mild, Obstructive Sleep Apnea-Hypopnea Syndrome AHI: 14 Reason for follow up: other (7 month) Equipment type: CPAP Equipment obtained from: [facility] (getting supplies with great effort but modem not activiated so has to have bring in device for download.) Mask style: Full face Last cushion change: 2 weeks ago CPAP Compliance Data - Data Reviewed with Patient Average duration of nightly device use: 4.45 Compliance rate %: 65.6 (180 days) Current pressure setting (cmH2O): 4-6 Humidity settin Heated hose settin Average residual AHI: 13.5 (with last pressure change the residual AHI was 10.1 at 4-6 cmH20 ) Average large leak: 7 min 14 sec Subjective Patient concerns: reports: dry mouth, nose, throat ( but the new mask is fitting better - uses lozenges), other (unable to use CPAP after wakes to use bathroom as seems awake). denies: aerophagia, mask discomfort, air blowing in eyes, mask leak noise, condensation in mask/hose, nasal congestion, epistaxis Observed to snore while using device: No Current pressure setting perceived as: comfortable On therapy, patient: reports: sleeping better (but has fallen asleep without CPAP / sleeping longer since COVID sheltor in order) Initial [place] Sleepiness Scale score: 12 Review of Systems Review of systems same as previous: No (hospitalized for knee surgery 10/21/19 later ill and postive for COVID anti) Physical Exam Height: 5 ft 6 in Weight: 201 lb (home ) Body Mass Index: 32.4 BMI Classification: Obese Impression and Plan 1. Obstructive Sleep Apnea-Hypopnea Syndrome, mild, with good treatment compliance and reduced residual AHI from recent pressure change. On CPAP therapy , the patient has better sleep quality and is slightly more rested overall especially since new mask and reduced pressure. The higher pressure range would awaken her from mask leaks. A mask refitting will also be done to see if further adjustment or different style needed. I discussed goal of CPAP residual AHI is to be below 5 at a comfortable pressure. Currently it seems higher pressure causes mask leaks and disrupts sleep. Thus I will order a manual titration study to find optimal treatment pressure and if needed a new mask will be fitted to improve mask fit and comfort with sleep. I discussed what sleep study involves and that my office staff will contact her. To reduce oral dryness, she is advised to reduce her heated hose to allow more moisture as her humidity is already at maximum. She is advised to use an oral dryness products. Types of products can be discussed with her dentist or pharmacist. She was advised not to use throat lozenge in her sleep due to choking risk. For patient supply concerns. Patient was notified that another DME can be used. I will have my training and development coordinator inform of DME options. A DWO prescription will then be made. Patient advised to contact this office if further supply problems. Patient's apnea severity and rationale for treatment to reduce apnea, improve sleep quality and reduce hypertension, cardiovascular and cerebrovascular events was reviewed. There was no time to explore further why it is hard for her to return to sleep after using the bathroom. Thus I advised her to persist in using CPAP with all sleep for maximum benefit of treatment. In regard to her recent positive Covid 19 antibody, she is to notify health department so can track her contacts. She has sent an email to her PCP and notified all her contacts during that period. I will contact her if anything else needs to be done. * Continue auto CPAP pressure at 4-6 cmH2O * Schedule manual titration study * Transfer to new DME * mask refitting * try oral dryness product * Use CPAP with all sleep * reduce heated hose * Notify me if snoring with mask or feeling that the pressure is too much or too little * Attempt to lose weight * Call this office if any problems using CPAP * Contact health department re contacts * Return for follow up after sleep study completed , or sooner if concerns arise Visit Type: Telehealth Video (to reduce risk of Covid 19 exposure.) Patient Location: Home Location of Provider: Home Patient agrees and consents to this telehealth visit type: Yes Patient agrees to have their insurance billed: Yes Time Spent with Patient (minutes): 26 Provider Statement: I spent 100% of the Telehealth Video Call with the patient with greater than 50% spent counseling the patient and coordination of care.
== END 2020-03-08 15:35 | disposition home or self-care (01) ==
LOC: SC 15:34
PROVIDERS: ATTEND Nurse Practitioner Family
DX: G47.33 Obstructive sleep apnea (adult) (pediatric) (principal); E66.9 Obesity, unspecified; Z68.32 Body mass index [BMI] 32.0-32.9, adult

== ENCOUNTER 2020-04-24 20:29 | Outpatient (CLI) | payer BC | END 2020-04-24 20:30 | disposition home or self-care (01) | LOC: SC 20:29 | PROVIDERS: ATTEND Internal Medicine Pulmonary Disease | DX: G47.33 Obstructive sleep apnea (adult) (pediatric) (principal) | CPT/HCPCS: 95811 ==

== ENCOUNTER 2020-05-11 13:02 | Outpatient (CLI) | payer BC, MEDICARE ==
--- NOTE | 2020-05-11 13:58 | SLEEP CARE CONSULTATION ---
Information from patient questionnaire entered by Yane Anderson. I have reviewed and concur with the information entered by Yane Anderson. This document represents the service I personally performed and the decisions made by me, Tara Garcia, RN, MSN, [employer] WINDING MACHINE OPERATOR. History of Present Illness Service Date and Time: 05/11/2020 1302 Previous diagnosis: Mild, Obstructive Sleep Apnea-Hypopnea Syndrome AHI: 14.0 (in 2019) Reason for follow up: with manual titration, other (2 month) Equipment type: CPAP Equipment obtained from: [facility] (getting supplies as needed) Mask style: Full face Backup mask available: Yes (old mask ) Last cushion change: 6 months Prior sleep studies: Yes Year and Where: 2019 - [facility] Type of Sleep Study: Home sleep study HPI additional information: Recently diagnosed with hypertension and started medication. Monitors blood pressure at home with usual range 130-119 / 90. Blood sugars have been elevated and monitoring with glucometer. Sleep Study - Results Type of Sleep Study: Polysomnography Polysomnography/Home Sleep Study results: The quality of the study is good. CPAP was initiated at 4 cmH2O and titrated up to CPAP at 10 cmH2O. CPAP at 10 cmH2O appeared to be optimal (AHI of 2.4 per hour on the pressure). There was supine sleep on the pressure. Oxygen satur ation was minimally low. Lower CPAP settings allowed frequent residual respiratory events when the patient slept supine. The patient appeared to have tolerated positive airway pressure therapy very well. The patients sleep efficiency was normal. Except for mild sleep fragmentation, the sleep architecture was also normal. There was no significant periodic leg movement of sleep. Cardiac rhythm was normal sinus rhythm with frequent premature ventricular contractions in bigeminy. No abnormal behavior (parasomnia) observed during the night. CPAP Compliance Data - Data Reviewed with Patient Average duration of nightly device use: 6.4 Compliance rate %: 96.7 Current pressure setting (cmH2O): 4-6 Humidity settin Heated hose settin Average residual AHI: 7.0 Central apnea: 0.9 Obstructive apnea: 1.5 Hypopnea: 4.5 Average large leak: 6 min 4 sec Subjective Patient concerns: reports: air blowing in eyes (when sleeps on her side), mask leak noise, dry mouth, nose, throat. denies: aerophagia, mask discomfort, condensation in mask/hose, nasal congestion, epistaxis (dry mouth if does not use CPAP after bathroom use and sleeps on side. ), other Observed to snore while using device: No Current pressure setting perceived as: comfortable On therapy, patient: reports: sleeping better, awakening more refreshed, being more awake and alert during the day, more rested overall, drowsiness while driving (sometimes feels fatigued and pulls over for coffee and rest ) Initial [place] Sleepiness Scale score: 12 (in 2019) Current [place] Sleepiness Scale score: 10 Allergies and Home Medications Known drug allergies: Yes Home medication list reviewed: Yes (added ? lisinopril for elevated blood pressure/ monitoring BP at home ) Review of Systems Review of systems same as previous: No (Recurrent headache since Covid 19 virus in October, Right low molar removed) Physical Exam Blood Pressure: 112/80 Cuff size: long Heart Rate: 95 O2 Saturation: 69 Height: 5 ft 6 in Weight: 207 lb (lost 10 pounds ) Body Mass Index: 33.4 BMI Classification: Obese Impression and Plan 1. Obstructive Sleep Apnea-Hypopnea Syndrome, mild, with good treatment compliance and mild elevation of residual AHI. On CPAP therapy, the patient has better sleep quality and is more rested overall. Manual titration study showed best control of apnea at [id number] with supine sleep noted best control on [id number] where apnea is more severe. Thus I will change her autoCPAP pressure to [id number]. Mask leaks can be reduced by washing mask daily and changing mask cushions more frequently to improve mask seal and comfort. Additionally, mask leaks predominately from when patient sleeps on their side can be reduced by using a CPAP pillow. A CPAP pillow sample was shown. This and other styes can be purchased online. Patient has lost weight. Currently patients BMI is 33.4 obesity class Obese. Obesity increases the risk of apnea, CPAP pressure requirements and overall health risks especially cardiovascular and diabetes. A diet consultation can be helpful in achieving optimal weight loss goals. Patient encouraged to discuss their weight loss goals with their PCP and consider a r eferral to a workcell operator. The patient's CPAP pressure range should accommodate some weight loss. Symptoms to report for additional pressure adjustment discussed.Patient's apnea severity and rationale for treatment to reduce apnea, improve sleep quality and reduce cardiovascular and cerebrovascular events was reviewed. I also reviewed the benefit of consistent device use of CPAP for hypertension and diabetes. 2. Arrhythmia, noted on sleep study and reported as cardiac rhythm was normal sinus rhythm with frequent premature ventricular contractions in bigeminy. Patient states she has been evaluated for irregular heart rate prior to her knee surgery earlier this year but no treatment indicated at that time. She was advised to follow up with her PCP for further evaluation and agreed with plan. * * Changeauto CPAP pressure to 9-10 cmH2O * Notify me if snoring with mask or feeling that the pressure is too much or too little * Attempt to lose weight * Call this office if any problems using CPAP * Return for follow up in 1-2 months , or sooner if concerns arise Visit Type: In Office Time Spent with Patient (minutes): 35 Provider Statement: I spent 100% of the Face to Face Visit with the patient with greater than 50% spent counseling the patient and coordination of care.
[2020-05-11 13:59] VITALS: BP 112/80
== END 2020-05-11 13:03 | disposition home or self-care (01) ==
LOC: SC 13:02
PROVIDERS: ATTEND Nurse Practitioner Family
DX: G47.33 Obstructive sleep apnea (adult) (pediatric) (principal); I49.9 Cardiac arrhythmia, unspecified; E66.9 Obesity, unspecified; Z68.33 Body mass index [BMI] 33.0-33.9, adult
CPT/HCPCS: 99212; 99214

== ENCOUNTER 2020-07-10 17:09 | Outpatient (CLI) | payer BC, MEDICARE ==
--- NOTE | 2020-07-10 17:43 | SLEEP CARE CONSULTATION ---
Information from patient questionnaire entered by Catherine Tena. I have reviewed and concur with the information entered by Catherine Tena. This document represents the service I personally performed and the decisions made by me, Melisa Delgado ARNP. History of Present Illness Service Date and Time: 07/10/2020 1700 Previous diagnosis: Mild, Obstructive Sleep Apnea-Hypopnea Syndrome AHI: 14.0 Reason for follow up: other (2-month followup pressure change) Equipment type: CPAP Equipment obtained from: [facility] (not supplies, hassle to deal with them) Mask style: Full face Backup mask available: No (need to save mask when she gets a new one) Last cushion change: long time Prior sleep studies: Yes Year and Where: 2018 - [facility] Type of Sleep Study: Home sleep study HPI additional information: SHREYA FERMIN was diagnosed to have mild, AHI 14.0, obstructive sleep apnea-hypopnea syndrome and returned today for CPAP therapy two month follow-up post pressure change. Patient states her machine did not update to the pressure change made back in April. For some reason her machine cannot talk to anything remotely at her house. She still feels that the pressure is too low and she is not sleeping well. Sleep Study - Results Prior sleep studies: Yes Year and Where: 2018 - [facility] CPAP Compliance Data - Data Reviewed with Patient Average duration of nightly device use: 5.75 Compliance rate %: 78.3 Current pressure setting (cmH2O): 4-6 Humidity settin Heated hose settin Average residual AHI: 8.8 Average large leak: 13 min 30 sec Subjective Missed days of use due to: reports: travel Patient concerns: reports: dry mouth, nose, throat (sleep with mouth open and gets dry). denies: aerophagia, mask discomfort, air blowing in eyes, mask leak noise, condensation in mask/hose, nasal congestion, epistaxis, other Observed to snore while using device: No Current pressure setting perceived as: too low On therapy, patient: reports: sleeping better, awakening more refreshed, being more awake and alert during the day, more rested overall. denies: drowsiness while driving Initial [place] Sleepiness Scale score: 12 (in 2019) Current [place] Sleepiness Scale score: 12 Allergies and Home Medications Drug allergies reviewed: Yes (gluten, milk) Home medication list reviewed: Yes (no changes) Review of Systems Review of systems same as previous: Yes (no changes) Physical Exam Heart Rate: 71 O2 Saturation: 94 Height: 5 ft 6 in Weight: 209 lb Body Mass Index: 33.7 BMI Classification: Obese Impression and Plan 1. Obstructive Sleep Apnea-Hypopnea Syndrome, mild, with good treatment com pliance and fair apnea control. On CPAP therapy, the patient has better sleep quality and is more rested overall but patient has had difficulty recently with pressure feeling too low and it did not get updated after last appointment ordered changes to 8-10 cm H2O. For patient supply concerns and possible machine malfunction. I will have her machine checked for malfunction and have her select another DME supplier. I will have my conservation coordinator inform of DME options. Patient advised to contact this office if further supply problems. Oral dryness can be reduced by adjusting humidity setting higher or heated hose lower or by adjusting both settings. Printed instructions given on how to change humidity and heated hose settings with rationale explaining why to change. Oral dryness can also be reduced by reducing mask leaks. Patient's apnea severity and rationale for treatment to reduce apnea, improve sleep quality and reduce cardiovascular and cerebrovascular events was reviewed. I also reviewed the benefit of consistent device use of CPAP for hypertension, arrhythmia, and diabetes. * Transfer DME * Check machine for malfunction, not connecting remotely * Change autoCPAP pressure to 8-10 cm H2O * Notify me if snoring with mask or feeling that the pressure is too much or too little * Attempt to lose weight * Call this office if any problems using CPAP * Return for follow up in 1-2 months, or sooner if concerns arise Visit Type: In Office Time Spent with Patient (minutes): 20 Provider Statement: I spent 100% of the Face to Face Visit with the patient with greater than 50% spent counseling the patient and coordination of care.
== END 2020-07-10 17:10 | disposition home or self-care (01) ==
LOC: SC 17:09
PROVIDERS: ATTEND Nurse Practitioner Family
DX: G47.33 Obstructive sleep apnea (adult) (pediatric) (principal); E66.9 Obesity, unspecified; Z68.33 Body mass index [BMI] 33.0-33.9, adult
CPT/HCPCS: 99213; G0463; 99212

== ENCOUNTER 2020-09-13 12:22 | Outpatient (CLI) | payer MEDICARE, OTHER | END 2020-09-13 12:23 | disposition home or self-care (01) | LOC: COV 12:22 | PROVIDERS: ATTEND Family Medicine | DX: R06.02 Shortness of breath (principal); R53.83 Other fatigue; J02.9 Acute pharyngitis, unspecified; Z20.828 Contact with and (suspected) exposure to other viral communicable diseases ==

== ENCOUNTER 2020-09-19 08:01 | Outpatient (CLI) | payer MEDICARE, OTHER ==
--- NOTE | 2020-09-19 13:28 | XRAY Report ---
PROCEDURE: Chest 2 View X-Ray INDICATIONS: DYSPNEA TECHNIQUE: 2 view(s) of the chest. COMPARISON: CT angiogram chest 2019. 2 view chest x-ray 04/01/2019.. FINDINGS: Surgical changes and devices: None. Lungs and pleura: No pleural effusions or pneumothorax. Lungs are clear. Mediastinum: Mediastinal contours are normal. Heart size is normal. Bones and chest wall: No suspicious bony abnormalities. Soft tissues appear unremarkable. IMPRESSION: No acute cardiopulmonary disease process. Reviewed by: Kassidy Garvin MD, PhD on 09/19/2020 1:26 PM PST Approved by: Kassidy Garvin MD, PhD on 09/19/2020 1:26 PM PST Station ID: [id number]
== END 2020-09-19 08:02 | disposition home or self-care (01) ==
LOC: DI 08:01
PROVIDERS: ATTEND Nurse Practitioner Family
DX: R06.02 Shortness of breath (principal); R42 Dizziness and giddiness; I34.0 Nonrheumatic mitral (valve) insufficiency
CPT/HCPCS: 93306

== ENCOUNTER 2020-09-19 08:02 | Outpatient (CLI) | payer MEDICARE, OTHER | END 2020-09-19 08:03 | disposition home or self-care (01) | LOC: DI 08:02 | PROVIDERS: ATTEND Internal Medicine Cardiovascular Disease | DX: R06.02 Shortness of breath (principal); R42 Dizziness and giddiness; I34.0 Nonrheumatic mitral (valve) insufficiency | CPT/HCPCS: 93306 ==

== ENCOUNTER 2021-02-19 16:42 | Outpatient (CLI) | payer MEDICARE, OTHER | END 2021-02-19 16:43 | disposition home or self-care (01) | LOC: COV 16:42 | PROVIDERS: ATTEND Surgery | DX: Z01.812 Encounter for preprocedural laboratory examination (principal); K21.9 Gastro-esophageal reflux disease without esophagitis; R93.89 Abnormal findings on diagnostic imaging of other specified body structures; E11.9 Type 2 diabetes mellitus without complications; G47.30 Sleep apnea, unspecified; I27.20 Pulmonary hypertension, unspecified; Z20.822 Contact with and (suspected) exposure to COVID-19 ==

== ENCOUNTER 2021-02-22 09:30 | Day surgery (SDC) | payer MEDICARE, OTHER ==
[2021-02-22] MEDS ORDERED: LACTATED RINGERS 1,000 ML IV ONE ×2 (10:08→11:19)
--- NOTE | 2021-02-22 10:41 | ANESTHESIA ---
Pre-Anesthesia VS, & Labs - Diagnosis GERD, Abnormal CT - Procedure EGD Vital Signs: Temp Pulse Resp BP Pulse Ox 36 C L 66 16 132/82 H 96 02/22/21 09:50 02/22/21 09:50 02/22/21 09:50 02/22/21 09:50 02/22/21 09:50 Height: 5 ft 7 in Weight (kg): 96.4 kg Body Mass Index: 33.3 BMI Classification: Obese - NPO >8 hours - Is Patient ?: No - Lab Results Current Lab Results: Laboratory Tests 02/22/21 09:54: POC Whole Bld Glucose 108 H Home Medications and Allergies Home Medications: Ambulatory Orders Levothyroxine [Synthroid] 88 mcg PO QDAC 02/21/21 Losartan [Cozaar] 50 mg PO DAILY 02/21/21 Omeprazole Magnesium 20 mg PO 02/21/21 Potassium Chloride [Micro-K] 10 meq PO 02/21/21 metFORMIN [Glucophage] 500 mg PO DAILYWM 06/18/17 Multivitamin [Multiple Vitamins] 1 each PO DAILY 10/15/17 Levothyroxine [Synthroid] 88 mcg PO QDAC 02/21/21 Losartan [Cozaar] 50 mg PO DAILY 02/21/21 Omeprazole Magnesium 20 mg PO 02/21/21 Potassium Chloride [Micro-K] 10 meq PO 02/21/21 Allergies/Adverse Reactions: Allergies Allergy/AdvReac Type Severity Reaction Status Date / Time gluten Allergy Nausea Verified 10/27/19 15:32 milk AdvReac Cramps Verified 10/27/19 15:32 Anes History & Medical History - Anesthetic History Anesthesia Complications: reports: Post-Operative Nausea/Vomiting - Medical History Cardiovascular: reports: Pulmonary embolism (2019 after covid infection), Other (Pulmonary hypertension. RVSP 61mmHg) Pulmonary: reports: Sleep apnea, CPAP use Gastrointestinal: reports: GERD, Diverticulitis Urinary: reports: None Neuro: reports: None Musculoskeletal: reports: Osteoarthritis Endocrine/Autoimmune: reports: HyPOthyroidism, Other Blood Disorders: reports: None Skin: reports: None Smoking Status: Former smoker Psychosocial: reports: No issues indicated History of Cancer?: No - Surgical History General: reports: Bowel surgery Gynecologic: reports: Oophrectomy Orthopedic: reports: Knee replacement, ACL reconstruction Dermatologic: reports: Skin cancer surgery Results - Echo Results Echo Results: Report reviewed Exam General: Alert, Oriented x3, Cooperative, No acute distress Dental: WNL Mouth Openin Fingerbreadth Neck Mobility: Normal Mallampati classification: II Thyromental Distance: 4-6 cm Respiratory: Lungs clear, Normal breath sounds, No respiratory distress, No accessory muscle use Cardiovascular: Regular rate, Normal S1, Normal S2, No murmurs Mental/Cognitive Status: Alert/Oriented X3, Normal for patient Plan Anesthesia Type: MAC Consent for Procedure(s) Verified and Reviewed: Yes Code Status: Attempt Resuscitation ASA classification: 3-Severe systemic disease Is this case an emergency?: No
[2021-02-22] MEDS ORDERED: METOCLOPRAMIDE 10 MG/2 ML VIAL IVP PRN (10:42)
[2021-02-22] MEDS ORDERED: ONDANSETRON 4 MG/2 ML VIAL IVP PRN (10:42)
[2021-02-22] MEDS ORDERED: ePHEDrine 50 MG/ML VIAL IVP PRN (10:42)
[2021-02-22] MEDS ORDERED: ATROPINE ABBOJECT 1 MG/10 ML SYRINGE IVP PRN (10:42)
[2021-02-22] MEDS ORDERED: fentaNYL 100 MCG/2 ML VIAL IVP PRN (10:42)
[2021-02-22] MEDS ORDERED: HYDROmorphone 0.5 MG/0.5 ML SYRINGE IVP PRN (10:42)
[2021-02-22] MEDS ORDERED: MORPHINE 2 MG/ML CARPUJECT IVP PRN (10:42)
[2021-02-22] MEDS ORDERED: NALOXONE 0.4 MG/ML VIAL IVP PRN (10:42)
[2021-02-22] MEDS ORDERED: PROPOFOL 200 MG/20 ML VIAL IVP ONE (10:45)
[2021-02-22] MEDS ORDERED: LIDOCAINE-MPF 2% 5 ML VIAL ONE (10:45)
[2021-02-22] MEDS ORDERED: LACTATED RINGERS 1,000 ML IV SCH (11:00)
[2021-02-22 12:07] VITALS: BP 132/86
--- NOTE | 2021-02-22 13:36 | ANESTHESIA POST OP EVALUATION ---
Anesthesia Post Eval - Post Anesthesia Eval Vitals: Last Vital Signs Temp 36.4 C L 02/22/21 12:07 Pulse 70 02/22/21 12:07 Resp 12 02/22/21 12:07 BP 132/86 H 02/22/21 12:07 Pulse Ox 99 02/22/21 12:07 CV Function Including HR & BP: Stable Pain Control: Satisfactory Nausea & Vomiting: Negative Mental Status: Baseline Respiratory Status: Airway Patent Hydration Status: Satisfactory Anesthesia Complications: None
== END 2021-02-22 09:31 | disposition home or self-care (01) ==
LOC: SDS 09:30
PROVIDERS: ATTEND Surgery
PROC: 0DB78ZX Excision of Stomach, Pylorus, Via Natural or Artificial Opening Endoscopic, Diagnostic (ICD-10-PCS; 2021-02-22)
PROC: 0DB58ZX Excision of Esophagus, Via Natural or Artificial Opening Endoscopic, Diagnostic (ICD-10-PCS; 2021-02-22)
PROC: 0DB48ZX Excision of Esophagogastric Junction, Via Natural or Artificial Opening Endoscopic, Diagnostic (ICD-10-PCS; 2021-02-22)
PROC: 0DB98ZX Excision of Duodenum, Via Natural or Artificial Opening Endoscopic, Diagnostic (ICD-10-PCS; principal; 2021-02-22 10:30)
DX: K21.9 Gastro-esophageal reflux disease without esophagitis (principal); K22.8 Other specified diseases of esophagus; K29.50 Unspecified chronic gastritis without bleeding; Z86.16 Personal history of COVID-19; G47.30 Sleep apnea, unspecified; I27.20 Pulmonary hypertension, unspecified; E66.9 Obesity, unspecified; Z68.33 Body mass index [BMI] 33.0-33.9, adult; K44.9 Diaphragmatic hernia without obstruction or gangrene
CPT/HCPCS: 43239; J7120

== ENCOUNTER 2021-04-20 14:49 | Outpatient (CLI) | payer MEDICARE, OTHER | END 2021-04-20 14:50 | disposition home or self-care (01) | LOC: COV 14:49 | PROVIDERS: ATTEND Internal Medicine | DX: Z01.812 Encounter for preprocedural laboratory examination (principal); I27.0 Primary pulmonary hypertension; Z20.822 Contact with and (suspected) exposure to COVID-19 ==

== ENCOUNTER 2021-07-15 13:33 | Outpatient (CLI) | payer MEDICARE, OTHER | END 2021-07-15 13:34 | disposition home or self-care (01) | LOC: RT 13:33 | PROVIDERS: ATTEND Nurse Practitioner Family | DX: R06.00 Dyspnea, unspecified (principal); B94.8 Sequelae of other specified infectious and parasitic diseases | CPT/HCPCS: 94010 ==

== ENCOUNTER 2021-09-04 15:32 | Outpatient (CLI) | payer MEDICARE, OTHER ==
[2021-09-04 19:56] LABS: BASOPHILS % (AUTO) 0.6 %; EOSINOPHILS # (AUTO) 0.4 10^3/uL (0.0-0.7); EOSINOPHILS % (AUTO) 5.6 %; HCT - HEMATOCRIT 46.9 % (37.0-47.0); HGB - HEMOGLOBIN 15.2 g/dL (12.0-16.0); LYMPHOCYTES # (AUTO) 1.8 10^3/uL (1.5-3.5); LYMPHOCYTES % (AUTO) 25.1 %; MEAN CORPUSCULAR HEMOGLOBIN 29.4 pg (27.0-31.0); MEAN CORPUSCULAR HGB CONC 32.4 g/dL (32.0-36.0); MEAN CORPUSCULAR VOLUME 90.7 fL (81.0-99.0); MEAN PLATELET VOLUME 10.7 fL (7.9-10.8); MONOCYTES # (AUTO) 0.6 10^3/uL (0.0-1.0); MONOCYTES % (AUTO) 8.9 %; NEUTROPHILS # (AUTO) 4.2 10^3/uL (1.5-6.6); NEUTROPHILS % (AUTO) 59.5 %; PLT - PLATELET COUNT 326 10^3/uL (130-450); RED BLOOD COUNT 5.17 10^6/uL (4.20-5.40); RED CELL DISTRIBUTION WIDTH 13.5 % (12.0-15.0)
[2021-09-04 20:19] LABS: ALBUMIN 4.6 g/dL (3.2-5.5); ALBUMIN/GLOBULIN RATIO 1.7 (1.0-2.2); BILIRUBIN,TOTAL 0.9 mg/dL (0.2-1.0); CALCIUM 9.9 mg/dL (8.5-10.3); CREATININE 0.9 mg/dL (0.4-1.0); POTASSIUM 4.1 mmol/L (3.5-5.0); TOTAL PROTEIN 7.3 g/dL (6.7-8.2)
== END 2021-09-04 15:33 | disposition home or self-care (01) ==
LOC: LAB.S 15:32
PROVIDERS: ATTEND Nurse Practitioner Family
DX: M20.11 Hallux valgus (acquired), right foot (principal); M21.611 Bunion of right foot; M79.89 Other specified soft tissue disorders
CPT/HCPCS: 36415; 80053; 85025

== ENCOUNTER 2022-01-20 18:13 | Emergency (ER) | payer MEDICARE, OTHER ==
--- NOTE | 2022-01-20 18:41 | ED Physician Documentation ---
PD HPI SYNCOPE - Stated complaint Stated Complaint: MIGRAINE - Chief complaint Chief Complaint: Neuro - History obtained from History obtained from: Patient - Additional information Additional information: 66-year-old woman with history of migraines. Had COVID a couple of years ago and had a PE with 3 months of anticoagulation after a knee replacement. No longer anticoagulated. She has borderline type 2 diabetes. She is been having headaches ever since she had COVID and has had a significant tight type headache in the frontal areas for the last 2 weeks associated with profound light sensitivity. Today she was at a friend's house having lunch and passed out for an unknown length of time. Not associated with chest pain or trouble breathing. No recent pedal edema or calf pain. Review of Systems Ten Systems: 10 systems reviewed and negative Constitutional: reports: Fatigue Cardiac: denies: Chest pain / pressure, Palpitations Respiratory: denies: Dyspnea, Cough PD PAST MEDICAL HISTORY - Past Medical History Cardiovascular: Pulmonary embolism (2019 after covid infection), Other (Pulmonary hypertension. RVSP 61mmHg) Respiratory: None Neuro: None Endocrine/Autoimmune: HyPOthyroidism, Other GI: GERD, Diverticulitis SAVINGS TELLER: None : None HEENT: Chronic vision loss Psych: None Musculoskeletal: Osteoarthritis Derm: None - Past Surgical History Past Surgical History: Yes General: Bowel surgery Ortho: Knee replacement, ACL reconstruction /SAVINGS TELLER: Oophrectomy Derm: Skin cancer surgery - Present Medications Home Medications: Ambulatory Orders Medication Instructions Recorded Confirmed metFORMIN [Glucophage] 500 mg PO DAILYWM 06/18/17 02/22/21 Multivitamin [Multiple Vitamins] 1 each PO DAILY 10/15/17 10/28/19 Levothyroxine [Synthroid] 88 mcg PO QDAC 02/21/21 02/21/21 Losartan [Cozaar] 50 mg PO DAILY 02/21/21 02/21/21 Omeprazole Magnesium 20 mg PO 02/21/21 Potassium Chloride [Micro-K] 10 meq PO 02/21/21 - Allergies Allergies/Adverse Reactions: Allergies Allergy/AdvReac Type Severity Reaction Status Date / Time gluten Allergy Nausea Verified 01/20/22 18:17 milk AdvReac Cramps Verified 01/20/22 18:17 - Social History Does the pt smoke?: No Smoking Status: Former smoker Does the pt drink ETOH?: No Does the pt have substance abuse?: No - Immunizations Immunizations are current?: Yes - POLST Patient has POLST: No POLST Status: Full Code PD ED PE NORMAL - Vitals Vital signs reviewed: Yes - General General: Alert and oriented X 3, Other (She is very light sensitive and somewhat slow to answer questions) - HEENT HEENT: PERRL, EOMI - Neck Neck: Supple, no meningeal sign, No bony TTP - Cardiac Cardiac: RRR, No murmur - Respiratory Respiratory: No respiratory distress, Clear bilaterally - Abdomen Abdomen: Normal bowel sounds, Soft, Non tender - Back Back: No CVA TTP, No spinal TTP - Derm Derm: Normal color, Warm and dry - Extremities Extremities: No edema, No calf tenderness / cord - Neuro Neuro: Alert and oriented X 3, No motor deficit, No sensory deficit, Normal speech Results - Vitals Vitals: Vital Signs - 24 hr 01/20/22 01/20/22 18:18 18:23 Temperature 36.6 C 36.6 C Heart Rate 69 69 Respiratory 16 16 Rate Blood Pressure 117/64 117/64 O2 Saturation 95 95 Oxygen O2 Source Room air - EKG (time done) 1954 Rate: Rate (enter#) (77) Rhythm: NSR (w single PAC) [place]: LAD Intervals: Normal DE QRS: Normal Ischemia: Normal ST segments - Labs Labs: Laboratory Tests 01/20/22 01/20/22 01/20/22 18:57 18:57 18:57 WBC 6.1 RBC 4.21 Hgb 12.7 Hct 37.9 MCV 90.0 MCH 30.2 MCHC 33.5 RDW 13.1 Plt Count 298 MPV 8.9 Neut # (Auto) 3.5 Lymph # (Auto) 1.4 L [place] # (Auto) 0.6 Eos # (Auto) 0.6 Baso # (Auto) 0.1 Absolute Nucleated RBC 0.00 Nucleated RBC % 0.0 PT 11.7 INR 1.1 Sodium 130 L Potassium 3.4 L Chloride 96 L Carbon Dioxide 23 Anion Gap 11.0 BUN 14 Creatinine 0.8 Estimated GFR (MDRD) 72 L Glucose 91 Calcium 8.6 Ethyl Alcohol 11.2 PD MEDICAL DECISION MAKING - ED course ED course: 66-year-old woman with status migrainosus and then syncope. She has a history of PE. Syncope work-up was negative, no evidence of active heart disease, anemia, or PE. CTA of the chest was negative. Given that this is her worst headache in a long time a CT head was done without pertinent positive findings. After the administration of IV Reglan and Benadryl her headache was gone. The patient Was counseled as to the diagnosis and need for follow-up. I counseled the patient with regard to signs and symptoms that would necessitate an urgent reevaluation in the emergency department. They understand they are welcome to return at any time if worse or if not improving as expected. This document was made in part using voice recognition software. While efforts are made to proofread this documents, sound alike and grammatical errors may occur. Departure - Departure Disposition: 01 Home, Self Care Clinical Impression: Status migrainosus, History of pulmonary embolism Syncope Qualifiers: Syncope type: unspecified Qualified Code(s): R55 - Syncope and collapse Condition: Good Record reviewed to determine appropriate education?: Yes Instructions: ED Fainting Unkn Cause, ED Headache Migraine Comments: CT scan of the head and chest were negative today, no evidence of brain problem nor pulmonary embolism either acute nor chronic. Return for new or worsening symptoms. Follow-up with your doctor, next available appointment.
[2022-01-20] MEDS: diphenhydrAMINE INJ 50 MG/ML VIAL IVP STA (18:46)
[2022-01-20] MEDS: METOCLOPRAMIDE 10 MG/2 ML VIAL IVP STA (18:49)
[2022-01-20] MEDS: SODIUM CHLORIDE 0.9% 1,000 ML IV STA (18:52)
[2022-01-20] MEDS ORDERED: IOVERSOL 320 100 ML VIAL IVP ONE (18:53)
[2022-01-20 19:04] LABS: BASOPHILS # (AUTO) 0.1 10^3/uL (0.0-0.1); BASOPHILS % (AUTO) 0.8 %; EOSINOPHILS # (AUTO) 0.6 10^3/uL (0.0-0.7); EOSINOPHILS % (AUTO) 10.2 %; HCT - HEMATOCRIT 37.9 % (37.0-47.0); HGB - HEMOGLOBIN 12.7 g/dL (12.0-16.0); LYMPHOCYTES # (AUTO) 1.4 10^3/uL (1.5-3.5); LYMPHOCYTES % (AUTO) 22.5 %; MEAN CORPUSCULAR HEMOGLOBIN 30.2 pg (27.0-31.0); MEAN CORPUSCULAR HGB CONC 33.5 g/dL (32.0-36.0); MEAN PLATELET VOLUME 8.9 fL (7.9-10.8); MONOCYTES # (AUTO) 0.6 10^3/uL (0.0-1.0); MONOCYTES % (AUTO) 9.2 %; NEUTROPHILS # (AUTO) 3.5 10^3/uL (1.5-6.6); NEUTROPHILS % (AUTO) 57.1 %; PLT - PLATELET COUNT 298 10^3/uL (130-450); RED BLOOD COUNT 4.21 10^6/uL (4.20-5.40); RED CELL DISTRIBUTION WIDTH 13.1 % (12.0-15.0); WHITE BLOOD COUNT 6.1 x10^3/uL (4.8-10.8)
[2022-01-20 19:14] LABS: CALCIUM 8.6 mg/dL (8.5-10.3); CREATININE 0.8 mg/dL (0.4-1.0); ETOH - ETHANOL 11.2 mg/dL; INR 1.1 (0.8-1.2); POTASSIUM 3.4 mmol/L (3.5-5.0); PT - PROTHROMBIN TIME 11.7 secs (9.9-12.6)
[2022-01-20] MEDS: IOVERSOL 320 100 ML VIAL IVP ONE (20:07)
--- NOTE | 2022-01-20 20:15 | CT Report ---
PROCEDURE: HEAD WO INDICATIONS: headache TECHNIQUE: Noncontrast 4.5 mm thick angled axial sections acquired from the foramen magnum to the vertex. For r adiation dose reduction, the following was used: automated exposure control, adjustment of mA and/or kV according to patient size. COMPARISON: None. FINDINGS: Image quality: Excellent. The ventricular system and cortical sulci demonstrate atrophy, consistent for patient's stated age. There are areas of hypodensity in the periventricular and subcortical white matter. There is no acut e intra or extra-axial fluid collection. No acute hemorrhage, mass lesion or midline shift. Brainst em is unremarkable. Globes are symmetrical. Sinuses demonstrate minimal scattered mucosal thickening. No fluid levels. Os seous structures are intact. IMPRESSION: 1. No acute intracranial process. 2. Minimal to mild atrophy and chronic microvascular ischemic changes. Reviewed by: Filomena Laboy MD on 01/20/2022 8:14 PM PDT Approved by: Filomena Laboy MD on 01/20/2022 8:14 PM PDT Station ID: [id number]
--- NOTE | 2022-01-20 20:18 | CT Report ---
PROCEDURE: ANGIO CHEST W/WO INDICATIONS: syncope, Hx of PE< pe protocol CONTRAST: IV CONTRAST: Optiray 320 ml: 100 PO CONTRAST: *NO PO CONTRAST TECHNIQUE: After the administration of intravenous contrast, 2 mm axial images were acquired from the pulmonary apices to the posterior costophrenic angles during the arterial phase. In addition, 1 mm lung kernel and 5 mm soft tissue kernel reconstructions were performed. 3-dimensional coronal oblique maximum int ensity projection (MIP) reformats, 8 mm axial MIP, and 5 mm coronal and sagittal MPR reformats were t hen performed through the thorax. For radiation dose reduction, the following was used: automated exp osure control, adjustment of mA and/or kV according to patient size. COMPARISON: Chest x-ray 09/19/2020, CT chest 10/27/2019 FINDINGS: Image quality: Excellent. Pulmonary arteries: Pulmonary arteries are normal in size, and demonstrate no intraluminal filling d efects to suggest central pulmonary embolism. Lungs and pleura: Lungs are clear. No pleural effusions or pneumothorax. Central and peripheral ai rways are patent. Mediastinum: Heart size is normal, without pericardial effusion. No mediastinal or hilar adenopathy . Thoracic aorta is normal in caliber and enhancement. Esophagus is normal in caliber, with large h iatal hernia. Bones and chest wall: No suspicious bony lesions. Ribs and thoracic spine appear intact throughout. No axillary or supraclavicular adenopathy. The thyroid is normal in size and there are no incident al findings. Abdomen: There is unchanged nodularity of the left adrenal gland. Visualized upper abdominal solid o rgans appear normal in the early arterial phase of enhancement. IMPRESSION: No pulmonary embolism. Lungs are clear. CLINICAL RECOMMENDATION STATEMENTS: In patients <35 years with an ITN detected on CT, MRI, or extrathyroidal ultrasound, the Committee re commends further evaluation with dedicated thyroid ultrasound if the nodule is "e1 cm and has no susp icious imaging features, and if the patient has normal life expectancy. In patients "e35 years with an ITN detected on CT, MRI, or extrathyroidal ultrasound, the Committee r ecommends further evaluation with dedicated thyroid ultrasound if the nodule is "e1.5 cm and has no s uspicious imaging features, and if the patient has normal life expectancy. (ACR, 2014) Reviewed by: Filomena Laboy MD on 01/20/2022 8:17 PM PDT Approved by: Filomena Laboy MD on 01/20/2022 8:17 PM PDT Station ID: [id number]
[2022-01-20 20:34] VITALS: BP 145/80
== END 2022-01-20 20:43 | disposition home or self-care (01) ==
LOC: EDUNIT# → ED 18:13
DX: G43.801 Other migraine, not intractable, with status migrainosus (principal); R55 Syncope and collapse; Z87.891 Personal history of nicotine dependence; Z86.711 Personal history of pulmonary embolism
CPT/HCPCS: 36415; 70450; 71275; 80048; 85025; 85610; 93005; 96374; 96375; 99284; G0480; J1200; J2765; Q9967; 80320

== ENCOUNTER 2022-02-01 18:48 | Outpatient (CLI) | payer MEDICARE, OTHER ==
--- NOTE | 2022-02-02 02:55 | CT Report ---
PROCEDURE: CERVICAL SPINE WO INDICATIONS: SYNCOPE AND COLLAPSE TECHNIQUE: Noncontrast 3 mm thick sections acquired from the skull base to the T4 level. Sagittal and coronal r eformats were then constructed. For radiation dose reduction, the following was used: automated exp osure control, adjustment of mA and/or kV according to patient size. COMPARISON: None. FINDINGS: Image quality: Excellent. Bones: No fractures or subluxation. There is straightening of the cervical lordosis with minimal re versal centered at C5. There is minimal anterolisthesis of approximately 1 to 2 mm at C3-C4 and C4-C5 . Minimal retrolisthesis demonstrated at C5-C6 and C6-C7. There is multilevel degenerative disc disea se throughout the cervical spine including moderate to severe degeneration at C5-C6 and C6-C7. Multil evel facet arthropathy also demonstrated throughout the cervical spine including moderate severe dege neration on the right at C4-C5. Visualized superior ribs are intact. Soft tissues: Prevertebral soft tissues are normal in thickness. No paravertebral hematomas. No ap ical pneumothoraces. IMPRESSION: 1. No fracture or subluxation. 2. Multilevel degenerative changes of the cervical spine as described. Reviewed by: Marshal Mijares MD on 02/02/2022 2:54 AM PDT Approved by: Marshal Mijares MD on 02/02/2022 2:54 AM PDT Station ID: [email or web address]
--- NOTE | 2022-02-02 02:59 | Ultrasound Report ---
PROCEDURE: Carotid Doppler Complete INDICATIONS: SYNCOPE AND COLLAPSE TECHNIQUE: Color and pulse Doppler interrogation was performed of both carotid systems, with image documentation and velocity measurements. COMPARISON: None. FINDINGS: Right side: Brachial blood pressure: 143/67 mm Hg. Common carotid artery peak systolic velocity: 92 cm/sec. Internal carotid artery peak systolic velocity: 59 cm/sec. Internal carotid artery end diastolic velocity: 27 cm/sec. External carotid artery peak systolic velocity: 68 cm/sec. ICA/CCA peak systolic ratio: 0.6 . Chinchilla scale imaging description: There is mild intimal thickening. Percent internal carotid artery stenosis: Less than 50% . Vertebral artery: Flow direction is antegrade. Left side: Brachial blood pressure: 156/82 mm Hg. Common carotid artery peak systolic velocity: 80 cm/sec. Internal carotid artery peak systolic velocity: 89 cm/sec. Internal carotid artery end diastolic velocity: 32 cm/sec. External carotid artery peak systolic velocity: 81 cm/sec. ICA/CCA peak systolic ratio: 1.1 . Chinchilla scale imaging description: There is mild intimal thickening and focal calcified plaque in the p roximal carotid bulb. Percent internal carotid artery stenosis: Less than 50% . Vertebral artery: Flow direction is antegrade. IMPRESSION: 1. Bilateral mild narrowing of less than 50% in the carotid bulbs. The estimate of stenosis included in the report of the imaging study was calculated using the NASCET method Reviewed by: Marshal Mijares MD on 02/02/2022 2:58 AM PDT Approved by: Marshal Mijares MD on 02/02/2022 2:58 AM PDT Station ID: [id number]
== END 2022-02-01 18:49 | disposition home or self-care (01) ==
LOC: DI 18:48
PROVIDERS: ATTEND Nurse Practitioner Family
DX: I65.23 Occlusion and stenosis of bilateral carotid arteries (principal); M47.812 Spondylosis without myelopathy or radiculopathy, cervical region; M50.31 Other cervical disc degeneration, high cervical region; M43.12 Spondylolisthesis, cervical region
CPT/HCPCS: 93880

== ENCOUNTER 2022-02-05 10:57 | Outpatient (CLI) | payer MEDICARE, OTHER ==
[2022-02-05 12:59] VITALS: BP 125/76
--- NOTE | 2022-02-05 12:59 | SLEEP CARE CONSULTATION ---
Information from patient questionnaire entered by Marion Josue MA. I have reviewed and concur with the information entered by Marion Josue MA. This document represents the service I personally performed and the decisions made by , Melisa Delgado ARNP. History of Present Illness Service Date and Time: 02/05/2022 1057 Previous diagnosis: Mild, Obstructive Sleep Apnea-Hypopnea Syndrome AHI: 14.0 Reason for follow up: annual (LAST SEEN 06/2020,) Equipment type: CPAP Equipment obtained from: [facility] (harrassing her with phone calls) Mask style: Full face Backup mask available: Yes (other mask) Last cushion change: 1 month Prior sleep studies: Yes Year and Where: 2019 - [facility] HPI additional information: SHREYA FERMIN was diagnosed to have mild, AHI 14.0, obstructive sleep apnea-hypopnea syndrome and returned today for CPAP therapy annual follow-up. Sleep Study - Results Prior sleep studies: Yes [facility] Compliance Data - Data Reviewed with Patient Average duration of nightly device use: 7 hours 1 minutes Compliance rate %: 74.2 (120 days) Current pressure setting (cmH2O): 4-6 (90% avg 6.0) Humidity settin Heated hose settin Average residual AHI: 12.1 Central apnea: 1.1 Obstructive apnea: 4.4 Hypopnea: 6.6 Average large leak: 6 mins 27 secs Subjective Missed days of use due to: reports: illness (has long Covid), travel Patient concerns: reports: air blowing in eyes (has dry eyes, saw eye doc who confirmed chronic dry eyes, using drops), dry mouth, nose, throat, other (HEADACHE). denies: aerophagia, mask discomfort, mask leak noise, condensation in mask/hose, nasal congestion, epistaxis Observed to snore while using device: No Current pressure setting perceived as: comfortable On therapy, patient: reports: sleeping better, awakening more refreshed, being more awake and alert during the day, more rested overall. denies: drowsiness while driving Initial Bath Sleepiness Scale score: 12 (in 2019) Current Bath Sleepiness Scale score: 6 Allergies and Home Medications Home medication list reviewed: Yes (Losartan, Tramadol for sleep, Pantoprazole) Allergy and home medication list: Allergies gluten Allergy (Verified 01/20/22 18:17) Nausea milk Adverse Reaction (Verified 01/20/22 18:17) Cramps Pt states that "certain dairy products do not cause any problems like some yogurts." Please verify with pt which dairy/milk items cause problems. Review of Systems Review of systems same as previous: Yes (KNEE SURGERY, SEP 2019, [facility], CONTACT COVID-19 FROM HOSPITAL. ) Physical Exam Vital signs obtained and entered by: Tyesha JOSUE CMA AABRANDEN Blood Pressure: 125/76 Cuff size: wrist Heart Rate: 76 O2 Saturation: 99 (PAPER) Height: 5 ft 7 in Weight: 205 lb Body Mass Index: 32.1 BMI Classification: Obese Impression and Plan 1. Obstructive Sleep Apnea-Hypopnea Syndrome, mild, with good treatment compliance and fair apnea control. On CPAP therapy, the patient has better sleep quality and is more rested overall. The patients pressure will be changed to autoCPAP 5-8 cmH20 for elevation of residual AHI. Patient advised to contact me if pressure change is uncomfortable so that it can be adjusted. Goals for apnea control discussed. Patient has a Dreamstation that she received in 2019. I informed the patient that [employer] has a recall on several devices like the patients machine. Patient was encouraged to register their device online with [employer] for the recall to see if their device is affected. If their device is affected they should start a claim. Patient denies any black particles seen in machine or hoses, any unusual odors coming from device. Patient has experienced some upper airway irritation, headache, dry eye irritation and sore throat since about the time she started using CPAP and after she had Covid infection. Patient was advised to stop using her device. I cannot verify if her symptoms are due to long covid symptoms or from the CPAP but would advise caution. Patient was already looking at trying to get a portable CPAP device to use when she sleeps away from home. I advised her that her insurance may not pay for this and she voiced that she already understood this possibility. She would like to definitely get one now. She has been trying to get one through [facility], her DME, but they have not been able to help her with this. She is not happy with them because of multiple phone calls to get her to order supplies, even after she asked them to stop. They have since stopped calling but she is very dissatisfied with them and want to change to another supplier. I will have my home care coordinator inform of DME options. A [facility] prescription will then be made. Patient advised to contact this office if further supply problems. I advised patient to sleep with her head elevated at least 30 degrees with a wedge pillow to reduce apneas until able to use her portable CPAP. Patient voiced understanding and agreement with plan. Patient's apnea severity and rationale for treatment to reduce apnea, improve sleep q uality and reduce cardiovascular and cerebrovascular events was reviewed. I also reviewed the benefit of consistent device use of CPAP for hypertension, arrhythmia and diabetes. * Change auto CPAP pressure to 5-8 cmH2O * Prescription for a portable CPAP * Transfer DME * Update supplies as needed * Notify me if snoring with mask or feeling that the pressure is too much or too little * Attempt to lose weight * Call this office if any problems using CPAP * Return for follow up in 1 year, or sooner if concerns arise Counseling Topics: Sleeping position, Spare mask Visit Type: In Office Time Spent with Patient (minutes): 39 Provider Statement: I spent 100% of the Face to Face Visit with the patient with greater than 50% spent counseling the patient and coordination of care.
== END 2022-02-05 10:58 | disposition home or self-care (01) ==
LOC: SC 10:57
PROVIDERS: ATTEND Nurse Practitioner Family
DX: G47.33 Obstructive sleep apnea (adult) (pediatric) (principal); E66.9 Obesity, unspecified; Z68.32 Body mass index [BMI] 32.0-32.9, adult
CPT/HCPCS: 99214; G0463; 99212

== ENCOUNTER 2023-01-12 15:57 | Emergency (ER) | payer MEDICARE, OTHER ==
--- NOTE | 2023-01-12 19:33 | ED Physician Documentation ---
History of Present Illness - Stated complaint Stated Complaint: FALL,BACK PX - Chief complaint Chief Complaint: Back Pain - Additonal information Additional information: 67-year-old female presents to the emergency department for evaluation of acute left-sided back pain. States she was setting up a garden chair on Friday when she sat in it it gave way. She fell backwards onto her left side. She has a very firm rigid couch which she hit. Since then she has been having pain with any movement and even deep breathing. She has been using 600 mg of Motrin without relief of symptoms. She has taken some leftover hydrocodone which also been ineffective. Pain does not radiate. No saddle anesthesia. No fevers. She is concerned she could have a rib fracture. Patient drove herself to the hospital Review of Systems Constitutional: denies: Fever, Chills GI: reports: Reviewed and negative Musculoskeletal: reports: Back pain PD PAST MEDICAL HISTORY - Past Medical History Cardiovascular: Pulmonary embolism (2019 after covid infection), Other (Pulmonary hypertension. 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: None : None HEENT: Chronic vision loss Psych: None Musculoskeletal: Osteoarthritis Derm: None - Past Surgical History Past Surgical History: Yes General: Bowel surgery Ortho: Knee replacement, ACL reconstruction /HEAVY LINE TECHNICIAN: Oophrectomy Derm: Skin cancer surgery - Present Medications Home Medications: Ambulatory Orders Medication Instructions Recorded Confirmed metFORMIN [Glucophage] 500 mg PO DAILYWM 06/18/17 02/22/21 Multivitamin [Multiple Vitamins] 1 each PO DAILY 10/15/17 10/28/19 Levothyroxine [Synthroid] 88 mcg PO QDAC 02/21/21 02/21/21 Losartan [Cozaar] 50 mg PO DAILY 02/21/21 02/21/21 Omeprazole Magnesium 20 mg PO 02/21/21 Potassium Chloride [Micro-K] 10 meq PO 02/21/21 Fexofenadine HCl 180 mg PO DAILY 03/08/22 03/08/22 Fluticasone [Flonase] 1 sprays ANGELO DAILY 03/08/22 03/08/22 Pantoprazole [Protonix] 40 mg PO QDAC 03/08/22 03/08/22 Propylene Glycol/Peg 400/Pf 1 drops EACHEYE TID 03/08/22 03/08/22 [Systane 0.3-0.4% Eye Drops] Cyclobenzaprine [Flexeril] 10 mg PO TID PRN #20 tablet 01/12/23 oxyCODONE [Roxicodone] 5 mg PO TID PRN #20 tablet 01/12/23 - Allergies Allergies/Adverse Reactions: Allergies Allergy/AdvReac Type Severity Reaction Status Date / Time gluten Allergy Nausea Verified 01/12/23 16:05 milk AdvReac Cramps Verified 01/12/23 16:05 - Social History Does the pt smoke?: No Smoking Status: Former smoker Does the pt drink ETOH?: No Does the pt have substance abuse?: No - Immunizations Immunizations are current?: Yes - POLST Patient has POLST: No POLST Status: Full Code PD ED PE NORMAL - General General: Alert and oriented X 3. No: No acute distress (Appears uncomfortable and in pain) - Cardiac Cardiac: RRR, No murmur - Respiratory Respiratory: No respiratory distress, Clear bilaterally - Back Back: No CVA TTP, No spinal TTP (No midline tenderness elicited with palpation of the thoracic or lower lumbar spine. Patient's exquisitely tender with palpation of the upper lumbar paraspinous muscles. No rash or ecchymosis noted. Reduced forward flexion secondary to pain. Antalgic gait.) - Derm Derm: Normal color, Warm and dry, No rash - Extremities Extremities: Other (Motor strength 5 of 5 bilateral lower extremities. No paresthesias.) - Neuro Neuro: Alert and oriented X 3 Eye Opening: Spontaneous Motor: Obeys Commands Results - Vitals Vitals: Vital Signs - 24 hr 01/12/23 16:05 Temperature 36.5 C Heart Rate 72 Respiratory 16 Rate Blood Pressure 132/83 H O2 Saturation 94 Oxygen O2 Source Room air - Rads (name of study) lumbar CT Relevant Findings:: Final report received (No compression fracture. Multi a level degenerative disc disease) thoracic spine CT Relevant Findings:: Final report received (Mildly displaced fracture of left transverse process of L1. Partially visualized fracture of left posterior 12th rib which is incompletely included on current study. Bibasilar atelectasis and scarring with small region of consolidation left lower lobe. Associated pne umonia cannot be excluded) cxr Relevant Findings:: Final report received (Linear left basilar opacities likely represent atelectasis. Small left pleural effusion) PD Medical Decision Making - ED course Complexity details: reviewed results, re-evaluated patient, considered differential, d/w patient ED course: 67-year-old female presents to the emergency department for evaluation of left- sided back and flank pain after a fall at home 2 days ago in which a chair she had set up collapsed. She fell onto her left side against a very rigid firm couch. Since then she has been having pain in the left flank region. No hematuria. Patient is concerned that she could have a rib or lumbar fracture. She has been using Motrin and hydrocodone without relief of symptoms. She is also been applying a back brace. On exam there was no midline lumbar tenderness elicited. She was exquisitely tender with palpation of the left paraspinous muscles. Given the age I elected to perform a CT of the thoracic and lumbar spines to rule out fracture. Imaging does show a mildly displaced L1 left transverse process fracture as well is a minimally displaced left 12th rib fracture. There are also findings of atelectasis within the lungs. There were no findings of retroperitoneal hematoma or kidney contusion Clinically the patient is stable. I have encouraged her to use an incentive spirometer at home to help improve the atelectasis. Clinically I am not suspicious for pneumonia. In order to help manage the symptoms I have sent a prescription for oxycodone as well as a muscle relaxer to her preferred pharmacy advising close follow-up with her primary care provider. She may benefit from referral to a back pain specialist. The usual and emergent return precautions for worsening symptoms were discussed. Departure - Departure Disposition: 01 Home, Self Care Clinical Impression: Pulmonary atelectasis Lumbar transverse process fracture Qualifiers: Encounter type: initial encounter Fracture type: closed Qualified Code(s): S32.009A - Unspecified fracture of unspecified lumbar vertebra, initial encounter for closed fracture Left rib fracture Qualifiers: Encounter type: initial encounter Rib fracture type: single rib Fracture type: closed Qualified Code(s): S22.32XA - Fracture of one rib, left side, initial encounter for closed fracture Condition: Stable Record reviewed to determine appropriate education?: Yes Instructions: ED Fx Rib, ED Fx Transverse Spinous Process Prescriptions: Cyclobenzaprine [Flexeril] 10 mg PO TID PRN #20 tablet PRN Reason: Spasms oxyCODONE [Roxicodone] 5 mg PO TID PRN #20 tablet PRN Reason: Pain Comments: Ruby as discussed at the bedside you do have a mildly displaced fracture of the left transverse process of your L1 vertebrae. These are always managed nonoperatively though they can be painful. The CT imaging also shows a fracture of the left posterior 12th rib. This is in the region of your lumbar vertebrae as well. The CT scan does show atelectasis in your left lower lobe of the lungs. This is likely developing because it hurts to take a deep breath. The CT scans did not show any findings to suggest organ damage, kidney contusions or hematomas or retroperitoneal bleeding Please use your incentive spirometer 4-6 times a day in order to make sure you are taking full big complete deep breaths and keeping the air sacs or alveoli of your lung open. In order to manage the pain I do recommend that you take ibuprofen 600 mg with food 2-3 times a day. For more severe pain I have sent a prescription for oxycodone to [facility] in [place]. I have also sent a prescription for a limited amount of a muscle relaxer. Please use both of these medications cautiously. They are sedating, make you unsafe to drive and put you at high risk for falls as well as constipation. I do recommend that you take MiraLAX every day while you are taking narcotics. Please discuss this ED visit with your primary care provider. You may benefit from referral to a back pain specialist though in the long-term I expect after several weeks you will be feeling better. If at any point you develop numbness or tingling in your genital area, lose control of your bowel or bladder function please return immediately to the ER. I am prescribing a short course of narcotic pain medication for you. These are potentially dangerous and addictive medications that should be used carefully. These medications may constipate you. Take an qiep-cth-lzxosna stool softener (docusate) twice daily with plenty of water while taking these medications. If you go 24 hours without a bowel movement, take [id number] miralax, per package instructions. Do not drink or drive while taking these medications. If you received narcotic or sedating medications while in the emergency department, do not drive for 24 hours. Store this medication in a safe, secure place and out of reach of children. It is a violation of federal law to give or sell this medication to another person or to use in a manner other than prescribed. The ED will not refill narcotic prescriptions, including prescriptions lost or stolen. To dispose of unwanted medications: 1. [facility] at [address] in [place] has a medication drop box. They accept prescription medications (in pill form) Friday through Friday 9:00 a.m. to 5:00 p.m. 2. The [facility] accepts prescription medications (in pill form only) for disposal year round. Call for more information. 3. Contact the [facility] for the next [facility] sponsored prescription drug collection event. , [phone], or [phone]; Note that many narcotic pain relievers also contain Tylenol/acetaminophen. Please ensure that your total dose of acetaminophen from all sources does not exceed 3 g (3000 mg) per day.
[2023-01-12] MEDS ORDERED: KETOROLAC 30 MG/ML VIAL IM STA (19:34)
--- NOTE | 2023-01-12 20:16 | XRAY Report ---
PROCEDURE: Chest 1 View X-Ray INDICATIONS: chest pain TECHNIQUE: One view of the chest was acquired. COMPARISON: None. FINDINGS: Surgical changes and devices: None. Lungs and pleura: There are linear left basilar opacities likely representing atelectasis. There is mild blunting of the left costophrenic angle compatible with a small left pleural effusion. No pneumo thorax. Mediastinum: Mediastinal contours appear normal. Heart size is normal. Bones and chest wall: No suspicious bony lesions. Overlying soft tissues appear unremarkable. IMPRESSION: 1. Linear left basilar opacities likely represent atelectasis. 2. Small left pleural effusion. Reviewed by: Marshal Mijares MD on 01/12/2023 8:14 PM PDT Approved by: Marshal Mijares MD on 01/12/2023 8:14 PM PDT Station ID: [id number]
--- NOTE | 2023-01-12 20:29 | CT Report ---
PROCEDURE: LUMBAR SPINE WO INDICATIONS: lbp after fall TECHNIQUE: Noncontrast 3 mm thick sections acquired from the T12 level to the sacrum. Sagittal and coronal refo rmats were constructed. For radiation dose reduction, the following was used: automated exposure co ntrol, adjustment of mA and/or kV according to patient size. COMPARISON: None. FINDINGS: Image quality: Excellent. Bones: There is normal bony alignment. No acute vertebral body compression fractures. No suspiciou s lytic or blastic bony lesions. Central spinal caliber is of normal overall caliber. No pars defec ts. Disc space height loss at L1-L2. Small vertebral body osteophytes. Minimal to mild multilevel bro ad-based disc bulges. No significant central canal stenosis. No significant bony neural foraminal tyler rowing. Soft tissues: No retroperitoneal masses or hematomas. Visualized aorta is normal in caliber. Sigmo id colon anastomosis. IMPRESSION: No compression fracture. Mild multilevel DDD. Reviewed by: Lucian Chin MD on 01/12/2023 8:28 PM PDT Approved by: Lucian Chin MD on 01/12/2023 8:28 PM PDT Station ID: [id number]
--- NOTE | 2023-01-12 20:46 | CT Report ---
PROCEDURE: THORACIC SPINE WO INDICATIONS: thoracic back pain after fall TECHNIQUE: Noncontrast 3 mm thick sections acquired through the region of interest in the thoracic spine. Sagit lary and coronal reformats were then constructed. For radiation dose reduction, the following was used : automated exposure control, adjustment of mA and/or kV according to patient size. COMPARISON: Concurrent CT of the lumbar spine. CT chest 01/20/2022 FINDINGS: Image quality: Excellent. Bones: There is preserved overall bony alignment. There is a mildly displaced fracture of the left t ransverse process of L1. There is a partially visualized fracture of the left posterior 12th rib. No acute vertebral body compression fractures. No suspicious sclerotic or lytic bony lesions. Central spinal canal is of normal overall caliber. Soft tissues: No paravertebral masses or hematomas. Visualized lungs demonstrate scarring or atelec tasis of the lung bases with mild consolidation inferiorly in the left lower lobe. IMPRESSION: 1. Mildly displaced fracture of left transverse process of L1. 2. Partially visualized fracture of the left posterior 12th rib which is incompletely included on the current study. 3. Bibasilar atelectasis and scarring with a small region of consolidation in the left lower lobe. As sociated pneumonia cannot be excluded. Reviewed by: Marshal Mijares MD on 01/12/2023 8:45 PM PDT Approved by: Marshal Mijares MD on 01/12/2023 8:45 PM PDT Station ID: [id number]
[2023-01-12 21:36] VITALS: BP 143/83
== END 2023-01-12 21:43 | disposition home or self-care (01) ==
LOC: ED 15:57
DX: J98.11 Atelectasis (principal); S32.009A Unspecified fracture of unspecified lumbar vertebra, initial encounter for closed fracture; S22.32XA Fracture of one rib, left side, initial encounter for closed fracture; W07.XXXA Fall from chair, initial encounter; Y93.89 Activity, other specified; Y92.007 Garden or yard of unspecified non-institutional (private) residence as the place of occurrence of the external cause; Z87.891 Personal history of nicotine dependence
CPT/HCPCS: 96372; 99284

== ENCOUNTER 2023-02-24 12:51 | Outpatient (CLI) | payer MEDICARE, OTHER ==
--- NOTE | 2023-02-24 16:46 | DEXA Report ---
PROCEDURE: Dexa Spine and/or Hip INDICATIONS: HIST OF FRAGILITY FX TECHNIQUE: Dual energy x-ray absorptiometry (DXA) was performed on a [employer] System. Regions measur ed are the AP Spine, femoral neck, and if needed forearm. COMPARISON: None. FINDINGS: Lumbar Spine: Bone Mineral Density 1.0 g/cm/cm,T score -1.5, osteopenia Left Femoral Neck: Bone Mineral Density 0.9 g/cm/cm, T score -1.1, osteopenia Impression: Osteopenia of the lumbar spine and left femoral neck. Patients with diagnosis of osteoporosis or osteopenia should have regular bone mineral density assess ment. For those eligible for Medicare, routine testing is allowed once every 2 years. Testing frequ ency can be increased for patients who have rapidly progressing disease or for those who are receivin g medical therapy to restore bone mass. Reviewed by: Karen Schwartz MD on 02/24/2023 4:44 PM PDT Approved by: Karen Schwartz MD on 02/24/2023 4:44 PM PDT Station ID: [id number]
== END 2023-02-24 12:52 | disposition home or self-care (01) ==
LOC: DI 12:51
PROVIDERS: ATTEND Nurse Practitioner Family
DX: M85.89 Other specified disorders of bone density and structure, multiple sites (principal)

== ENCOUNTER 2024-01-12 17:13 | Emergency (ER) | payer MEDICARE, OTHER ==
--- NOTE | 2024-01-12 18:32 | ED Physician Documentation ---
PD HPI UPPER EXT INJURY - Stated complaint Stated Complaint: RT ARM PX - Chief complaint Chief Complaint: Ext Problem - Additonal information Additional information: 68-year-old female presents emergency department for right arm pain. Patient fell in bathtub 4 days ago she complains of generalized bodyaches but most pain is to her right upper arm. She complains of pain from the top of her humerus down to her wrist. She said that she had surgery on her wrist about 10 years ago actually make sure that there is no injuries to that surgery. She has full range of motion to wrist, shoulder, elbow. She did not hit her head she had no loss of consciousness. She has no abrasions or bruises to the right upper extremity. She has been using heat to help with the pain as well as ibuprofen. 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: None : None HEENT: Chronic vision loss Psych: None Musculoskeletal: Osteoarthritis Derm: None - Past Surgical History Past Surgical History: Yes General: Bowel surgery Ortho: Knee replacement, ACL reconstruction /DIRECTOR CORRECTIONAL AGENCY: Oophrectomy Derm: Skin cancer surgery - Present Medications Home Medications: Ambulatory Orders Medication Instructions Recorded Confirmed metFORMIN [Glucophage] 500 mg PO DAILYWM 06/18/17 01/12/24 Multivitamin [Multiple Vitamins] 1 each PO DAILY 10/15/17 01/12/24 Levothyroxine [Synthroid] 88 mcg PO QDAC 02/21/21 01/12/24 Losartan [Cozaar] 50 mg PO DAILY 02/21/21 01/12/24 Pantoprazole [Protonix] 40 mg PO QDAC 03/08/22 01/12/24 Propylene Glycol/Peg 400/Pf 1 drops EACHEYE TID 03/08/22 01/12/24 [Systane 0.3-0.4% Eye Drops] - Allergies Allergies/Adverse Reactions: Allergies Allergy/AdvReac Type Severity Reaction Status Date / Time gluten Allergy Nausea Verified 01/12/24 17:23 milk AdvReac Cramps Verified 01/12/24 17:23 - Social History Does the pt smoke?: No Smoking Status: Never smoker Does the pt drink ETOH?: No Does the pt have substance abuse?: No - Immunizations Immunizations are current?: Yes - POLST Patient has POLST: No POLST Status: Full Code PD ED PE NORMAL - Vitals Vital signs reviewed: Yes - General General: Alert and oriented X 3, No acute distress, Well developed/nourished, Other - Extremities Extremities: No deformity, No tenderness to palpate, Normal ROM s pain, No edema, Other (Right upper extremity:, Tenderness with palpation into the right lateral humerus,, range of motion to elbow, wrist, fingers, shoulder without any difficulty or pain. No weakness. No abrasions no swelling. No bruising.) - Neuro Neuro: Alert and oriented X 3, painter foreman 2-12 intact, No motor deficit, No sensory deficit, Normal speech - Psych Psych: Normal mood Results - Vitals Vitals: Vital Signs - 24 hr 01/12/24 01/12/24 17:19 19:40 Temperature 36.7 C 36.7 C Heart Rate 87 82 Respiratory 18 16 Rate Blood Pressure 163/66 H 140/70 H O2 Saturation 95 98 Oxygen O2 Source Room air - Rads (name of study) Three-view right elbow x-ray Relevant Findings:: Final report received, EMP independent interpretation of test, Other (No acute osseous abnormalities) Three-view right wrist x-ray Relevant Findings:: Final report received, EMP independent interpretation of test, Other (Lucency is seen in the central scaphoid with scleretic rim.) Right humerus x-ray Relevant Findings:: Final report received, EMP independent interpretation of test, Other (No acute bony abnormalities or findings.) PD Medical Decision Making - ED course ED course: 68-year-old female presents emergency department after experiencing a ground- level fall in her bathtub 4 days ago. She has pain to the right arm. Complete x-rays have been done of her right humerus, right elbow, right wrist. No acute abnormalities are visualized. On the right wrist x-ray it does show a small calcific density posterior to the wrist on the lateral view only which the radiology is suggesting a possible minimally displaced triquetral fracture. On exam patient has had a history of right wrist surgery she has no pinpoint tenderness to this area and I do not believe that this is a fracture. It also shows lucency is seen at the central scaphoid with sclerotic rim although I also believe that this is chronic postop changes. She has full range of motion to her wrist and no pinpoint tenderness to that area. She came in with a wrist splint she is told to continue to wear this wrist splint as needed for pain and discomfort. I believe that the pain she is experiencing is most likely due to a contusion patient told to follow-up primary care provider as needed she was applying heat to the area she was recommended to only use ice versus heat and to also add Tylenol to the regimen of her medications to help with pain control. Return precautions given all questions answered safe for discharge. Departure - Departure Disposition: 01 Home, Self Care Clinical Impression: Contusion of right arm Qualifiers: Encounter type: initial encounter Qualified Code(s): S40.021A - Contusion of right upper arm, initial encounter Fall in bathtub Qualifiers: Encounter type: initial encounter Qualified Code(s): W18.2XXA - Fall in (into) shower or empty bathtub, initial encounter Instructions: ED Contusion Upper Ext Comments: Thank you for trusting us with your care. We have completed a very thorough workup doing x-rays on your right humerus, elbow, wrist and I am not seeing any acute abnormalities or findings at this time. I believe that the pain you are experiencing is most likely due to a contusion, also known as a deep bruise. Keep in mind this can take up to 6 weeks to heal and I would stop using heat for this pain. I would use 20 minutes of ice at a time with 1 hour off. You can also buy lidocaine patches [id number] to help with any pain and discomfort that you are experiencing. I would strongly encourage you to alternate or even combining the use of Tylenol and ibuprofen. You can use 600 mg of ibuprofen and 650 mg of Tylenol every 6 hours. Please help with your primary care provider for further evaluation and possible physical therapy. Wishing you a speedy recovery. Forms: PCP List Discharge Date/Time: 01/12/24 19:40
--- NOTE | 2024-01-12 19:34 | XRAY Report ---
PROCEDURE: Elbow 3+V RT INDICATIONS: fall/pain TECHNIQUE: 3 views of the elbow were acquired. COMPARISON: None. FINDINGS: Bones: No acute fractures or dislocations. No suspicious bony lesions. Soft tissues: No effusion. No suspicious soft tissue calcifications. IMPRESSION: No acute osseous abnormality. If there is clinical concern or persistent symptoms, additional imaging such as repeat radiographs or advanced imaging (e.g. CT, MRI) may be helpful for further evaluation. Reviewed by: Leon Friedman MD on 01/12/2024 7:33 PM PDT Approved by: Leon Friedman MD on 01/12/2024 7:33 PM PDT Station ID: [id number]
[2024-01-12] MEDS: ACETAMINOPHEN 325 MG TABLET PO STA (19:37)
--- NOTE | 2024-01-12 19:40 | XRAY Report ---
PROCEDURE: Wrist 3+V RT INDICATIONS: fall/pain TECHNIQUE: 4 views of the wrist were acquired. COMPARISON: None. FINDINGS: Bones: Calcific density seen posterior to the proximal carpal row on lateral view only with overlyin g soft tissue edema, and a small minimally displaced triquetral fracture may be present. Cylindrical lucency is seen at the waist of the scaphoid . Degenerative changes are seen at the 1st carpometacarp al and triscaphe joints. Soft tissues: No suspicious soft tissue calcifications. IMPRESSION: 1.Small calcific density posterior to the wrist on lateral view only may indicate a minimally displac ed triquetral fracture. 2.Lucency is seen in the central scaphoid with sclerotic rim. Recommend correlation for prior instrum entation or remote prior trauma versus possibly a nonaggressive osseous lesion. Acute scaphoid fractu re is considered unlikely. Reviewed by: Leon Friedman MD on 01/12/2024 7:38 PM PDT Approved by: Leon Friedman MD on 01/12/2024 7:38 PM PDT Station ID: [id number]
[2024-01-12 19:46] VITALS: BP 140/70; O2SAT 98
--- NOTE | 2024-01-12 20:20 | XRAY Report ---
PROCEDURE: Humerus RT INDICATIONS: right arm pain TECHNIQUE: 2 views of the humerus were acquired. COMPARISON: None. FINDINGS: Bones: No fractures or dislocations. No suspicious bony lesions. Soft tissues: No suspicious soft tissue calcifications or masses. IMPRESSION: No acute bony abnormality. Reviewed by: Katarzyna Pagan MD on 01/12/2024 8:19 PM PDT Approved by: Katarzyna Pagan MD on 01/12/2024 8:19 PM PDT Station ID: [id number]
== END 2024-01-12 19:40 | disposition home or self-care (01) ==
LOC: ED 17:13
DX: S40.021A Contusion of right upper arm, initial encounter (principal); W18.2XXA Fall in (into) shower or empty bathtub, initial encounter
CPT/HCPCS: 73060; 73080; 73110; 99284; A9270

== ENCOUNTER 2024-01-21 11:03 | Outpatient (CLI) | payer MEDICARE, OTHER ==
--- NOTE | 2024-01-22 09:57 | Mammography Report ---
BILATERAL DIGITAL SCREENING MAMMOGRAM 3D/2D: 01/21/2024 CLINICAL: Routine screening. Comparison is made to exams dated: 04/25/2017 mammogram, 07/25/2015 mammogram, 05/14/2012 mammogram, an d 04/26/2010 mammogram - [facility]. Both breasts are extremely dense, which lowers the sensitivity of mammography (category d />75% gland ular tissue). No significant masses, calcifications, or other findings are seen in either breast. There has been no significant interval change. IMPRESSION: NEGATIVE There is no mammographic evidence of malignancy. A 1 year screening mammogram is recommended. Based on the Tyrer Cuzick model (a risk assessment model) the patient's lifetime risk is 11.6% and he r 10 year risk is 6.6%. According to the ACR, ACS, and NCCN guidelines, an annual breast MRI exam caity ng with mammogram is recommended if the patient's lifetime risk is 20% or greater. This exam was interpreted at Station ID: [id number]. NOTE: For mammograms, a report in lay terms will be sent to the patient. Approximately 15% of breast malignancies will not be visualized mammographically. In the management of a palpable breast mass, a negative mammogram must not discourage biopsy of a clinically suspicious lesion. Electronically Signed By: Lucian aguilera/leonard:01/21/2024 13:25:10 letter sent: No_Letter ACR BI-RADS Category 1: Negative 3341F PARENCHYMAL PATTERN: (VD) - The breast(s) demonstrate(s) extremely dense parenchyma, limiting the sen sitivity of mammography. BI-RADS CATEGORY: (1) - 1 RECOMMENDATION: (ANNUAL) - Recommend routine annual screening mammography. [id number] 1 year screening LATERALITY: (B)
== END 2024-01-21 11:04 | disposition home or self-care (01) ==
LOC: DI.S 11:03
PROVIDERS: ATTEND Nurse Practitioner Family
DX: Z12.31 Encounter for screening mammogram for malignant neoplasm of breast (principal); R92.30 Dense breasts, unspecified